=== PATIENT | female | born 1975 | race Caucasian/White ===

== ENCOUNTER 2017-07-29 15:46 | Observation (INO) ==
--- NOTE | 2017-07-29 16:52 | Emergency Department Report ---
Epistaxis HPI - General Chief complaint: Medical Emergency Stated complaint: nose bleed Time Seen by Provider: 07/29/17 16:40 Source: patient Mode of arrival: ambulatory Limitations: no limitations - History of Present Illness HPI Narrative: Pt presents with epistaxis that started about 1445. Pt used Afrin and has held pressure at home. She called her oncologist who instructed pt to come in to the ER. Pt platelets yesterday were [id number]. She does wear home O2 and states she has been using a humidifier. Nasal clamped was placed on arrival which she has removed herself. Bleeding currently controlled. Pt reports last nose bleed about 3 weeks ago. She had one in December where she came to ER and had to be transferred to [facility] complaint: epistaxis Location: bilateral nostril Onset (ago): hour(s) Duration: constant Context: history of previous Treatment prior to arrival: nose pinching, stuffed nose with tissue, other ( Afrin) - Related Data Home Medications Medication Instructions Recorded Confirmed IMMUNE GLOBULIN (IVIG) Low IGA 1 vial IV Q2WKS #0 06/10/15 07/29/17 [GAMMAGARD Low IGA] Omeprazole 40 mg PO DAILY #0 06/10/15 07/29/17 Ruxolitinib Phosphate [Jakafi] 5 mg PO BID 06/30/17 07/29/17 Acetaminophen [Acetaminophen Extra 1,000 mg PO Q6H PRN 07/29/17 07/29/17 Strength] Albuterol Sulfate [Proair Hfa] 2 puff INH Q4H PRN 07/29/17 07/29/17 Ergocalciferol (Vitamin D2) 50,000 unit PO 2XW 07/29/17 07/29/17 [Vitamin D2] Insulin Degludec *U100* [Tresiba 20 unit SQ HS 07/29/17 07/29/17 Flextouch U-100 Pen] Levothyroxine Sodium 75 mcg PO ACB 07/29/17 07/29/17 [Levothyroxine Sodium] Levothyroxine Sodium 300 mcg PO ACB 07/29/17 07/29/17 [Levothyroxine Sodium] Methylprednisolone Sod Succ/Pf 1,000 mg IV Q2WKS 07/29/17 07/29/17 [Solu-Medrol 1,000 mg Vial] diphenhydrAMINE HCl [Benadryl] 25 mg PO Q2WKS 07/29/17 07/29/17 Allergies Allergy/AdvReac Type Severity Reaction Status Date / Time amoxicillin Allergy Intermediate HIVES Verified 07/29/17 16:55 erythromycin base Allergy Intermediate HIVES Verified 07/29/17 16:55 ondansetron Allergy Intermediate HIVES Verified 07/29/17 16:55 Penicillins Allergy Intermediate HIVES Verified 07/29/17 16:55 Sulfa (Sulfonamide Allergy Intermediate HIVES Verified 07/29/17 16:55 Antibiotics) NSAIDS (Non-Steroidal Allergy Unknown DO NOT Verified 07/29/17 16:55 Anti-Inflamma GIVE D/T KIDNEY FUNCTION cephalexin [From Keflex] Allergy Hives Verified 07/29/17 16:55 ketorolac AdvReac Unknown Verified 07/29/17 16:56 Review of Systems All systems: reviewed and negative except as stated Constitutional: Reports: as per HPI ENT: Reports: as per HPI Hematological/Lymphatic: Reports: as per HPI Allergic/Immunologic: Reports: as per HPI PFS Patient Stated Medical History Cerebrovascular Accident No Migraine Yes Seizures No Syncope No Transient Ischemic Attacks ( No TIA) Cataracts No Dental Problems No Glaucoma No Hearing Loss No Macular Degeneration No Other HEENT Yes: sinus problems Cardiac Arrhythmia No Congestive Heart Failure No Heart Murmur Yes Myocardial Infarction No Bronchitis Yes Pneumonia Yes Sleep Apnea No Other Respiratory Yes: interstitial lung disease-pneumocytosis Diabetes Mellitus Type 2 Yes Gastroesophageal Reflux Yes Disease Hiatal Hernia No Ulcer No Hx Renal Disease Yes: renal deficiency Hx Urinary Tract Infection No Anemia Yes Blood Disorders Yes: low platelet count Clotting Problems No Osteoarthritis No Cellulitis Yes: leg MRSA Yes: hand Sepsis No Vancomycin-Resistant No Enterococci Anesthesia Reactions No Blood Transfusions No Fibroids No Ovarian Cysts Yes Post Menopausal Yes Clinic Medical History (Last Reviewed 07/03/17 @ 11:47 by Oswaldo Smith MD) Diabetes mellitus type 2, controlled (Chronic Medical ~2004) Worse control. Vitamin D deficiency (Chronic Medical) Still very deficient. Hypothyroidism (Chronic Medical ~1982) Clinically euthyroid. Obesity (BMI 30-39.9) (Chronic Medical) Surgical History: Hysterectomy, gallbladder, port placement. bone marrow biopsy x3. colonoscopy Family History: Family History (Last Reviewed 07/03/17 @ 11:47 by Oswaldo Smith MD) Maternal Grandmother Diabetes Mother Diabetes Thyroid disease Paternal Grandmother Diabetes Cancer of pancreas Colon cancer Maternal Grandfather Thyroid disease Paternal Grandfather Thyroid disease - Social History Smoking status: Former smoker Physical Exam - Limitations Limitations: no limitations - General General appearance: alert, in no apparent distress - Normal Exams: Head:: Normocephalic without trauma Eyes:: Pupils are PERRLA w/ EOMI Neck:: Full range of motion, without adenopathy Chest/Respirations:: Clear all joyner, with good airflow, and symmetry bilaterally Cardiovascular:: Regular rate and rhythm, without murmur or gallop Abdomen:: Bowel sounds positive, soft, non-tender Musculoskeletal:: No tenderness, or deformity noted, good range of motion, all extremities Integumentary:: No rashes Neurological:: Patient is alert, and oriented, cranial nerves, motor/sensory/ cerebellar, exams w/o gross deficits, to observation Psychiatric:: Patient exhibits, appropriate attention, emotion and affect - Expanded ENT Exam Nose exam: Absent: sinus tenderness, nasal deviation, laceration, abrasion Nasal speculum exam: Bilateral: epistaxis (currently controlled) Course Vital Signs Temperature 97.4 F 07/29/17 15:51 Pulse Rate 85 07/29/17 15:51 Respiratory Rate 20 07/29/17 15:51 Blood Pressure 111/64 07/29/17 15:51 Pulse Oximetry 93 07/29/17 15:51 Temperature 97.4 F 07/29/17 15:51 Pulse Rate 84 07/29/17 18:05 Respiratory Rate 20 07/29/17 18:05 Blood Pressure 108/61 07/29/17 18:05 Pulse Oximetry 98 07/29/17 18:05 Epistaxis - [facility] Narrative Medical decision making narrative: Epistaxis has remained controlled since the removal of the nasal clamp. Dr Plaza notified of pt current platelet level which is now 3 down from [address] Plaza would like pt to be admitted 24 obs to the hospitalist for platelet transfusion. Findings and plan discussed with pt who is in agreement with care. - Differential Diagnosis Likely: nasal bone fracture, anterior epistaxis, posterior epistaxis - Lab Data Attestation: I reviewed the patient's lab results. Result diagrams: 07/29/17 17:03 Lab Results 07/29/17 Range/Units 17:03 WBC 3.3 L (4.5-11.0) T/MM3 RBC 4.02 (4.00-5.20) M/MM3 Hgb 11.3 L (12-16) GM/DL Hct 37.9 (36-46) % MCV 94.3 (80-100) UM3 MCH 28.1 (26-34) UUG MCHC 29.8 L (31-37) GM/DL RDW Std Deviation 60.0 H (36.9-50.2) FL Plt Count 3 L* D (130-400) T/MM3 MPV Not performed Immature Gran % (Auto) Not performed Neut % (Auto) Not performed Lymph % (Auto) Not performed [place] % (Auto) Not performed Eos % (Auto) Not performed Baso % (Auto) Not performed Neut # (Auto) Not performed Lymph # (Auto) Not performed [place] # (Auto) Not performed Eos # (Auto) Not performed Baso # (Auto) Not performed Abs Immat Gran (auto) Not performed Neutrophils % (Manual) 79.0 H (33-66) % Band Neutrophils % 4.0 (0-6) % Lymphocytes % (Manual) 14.0 L (23-45) % Monocytes % (Manual) 3.0 (0-9.0) % Neutrophils # (Manual) 2.6 (1.8-7.7) T/MM3 Band Neutrophils # 0.1 T/MM3 Lymphocytes # (Manual) 0.5 L (1-4.8) T/MM3 Monocytes # (Manual) 0.1 (0-0.8) T/MM3 Poikilocytosis 1+ Anisocytosis 1+ Tear Drop Cells 1+ RBC Morph Comment Abnormal Disposition Clinical Impression: Thrombocytopenia Disposition: 02 [place] [facility] [place] Condition: Improved Prescriptions: No Action Ruxolitinib Phosphate [Jakafi] 5 mg PO BID Levothyroxine Sodium [Levothyroxine Sodium] 75 mcg PO ACB Ergocalciferol (Vitamin D2) [Vitamin D2] 50,000 unit PO 2XW Albuterol Sulfate [Proair Hfa] 2 puff INH Q4H PRN PRN Reason: Prn Orders Methylprednisolone Sod Succ/Pf [Solu-Medrol 1,000 mg Vial] 1,000 mg IV Q2WKS diphenhydrAMINE HCl [Benadryl] 25 mg PO Q2WKS Acetaminophen [Acetaminophen Extra Strength] 1,000 mg PO Q6H PRN PRN Reason: Pain IMMUNE GLOBULIN (IVIG) Low IGA [GAMMAGARD Low IGA] 1 vial IV Q2WKS #0 Omeprazole 40 mg PO DAILY #0 Levothyroxine Sodium [Levothyroxine Sodium] 300 mcg PO ACB Insulin Degludec *U100* [Tresiba Flextouch U-100 Pen] 20 unit SQ HS Referrals: Kenny Baker DO [Family Provider] - Time of Disposition: 18:30 - Seen By: jean claude
[2017-07-29] MEDS ORDERED: SALINE FLUSH 10ml SYRINGE IVF PRN (18:26)
--- NOTE | 2017-07-29 18:36 | History & Physical Report ---
History of Present Illness Date: 07/29/17 Chief complaint: epistaxis, low platelets HPI: Patient presents to the emergency room with epistaxis. Bleeding controlled following clamping of the nose. Her platelet count was 12,000 yesterday. Today in the ER was found to be 3000. Patient has myelofibrosis and follows with Dr. Del Toro. She sees Dr. Emily Cabello for IVIG. She states she had this infusion yesterday. She has had platelet transfusions in the past. Last transfusion was in May. Other than her bloody nose, she has no other symptoms. She does wear 3 liters oxygen 24 -7 due to her interstitial lung disease. Review of Systems All systems PM: 10-point ROS was reviewed, no additional remarkable complaints except (epistaxis) Past Medical History Medical History Myelofibrosis Migraine headaches Interstitial lung disease GERD Thrombocytopenia History of MRSA Diabetes mellitus type 2, controlled Vitamin D deficiency Hypothyroidism Clinically euthyroid. Obesity (BMI 30-39.9) Surgical History: Hysterectomy, gallbladder, port placement. bone marrow biopsy x3. colonoscopy Family History: Family History Maternal Grandmother Diabetes Mother Diabetes Thyroid disease Paternal Grandmother Diabetes Cancer of pancreas Colon cancer Maternal Grandfather Thyroid disease Paternal Grandfather Thyroid disease Family History Updates: Updated - Social History Smoking status: Former smoker (quit 13 years ago) Substance use type: does not use Alcohol intake frequency: holidays/special occasions only (2 times a year) Current occupational status: unemployed Social history: PCP-Dr. Baker Oncologist-Dr. Del Toro Mixing Machine Tender-Dr. Smith Yard Assistant-Dr. Cabello Performance Reporter-Dr. Messer Infectious disease-Dr. Emily Cabello Medications Home Medications Medication Instructions Recorded Confirmed Type IMMUNE GLOBULIN (IVIG) Low IGA 1 vial IV Q2WKS #0 06/10/15 07/29/17 History [GAMMAGARD Low IGA] Omeprazole 40 mg PO DAILY #0 06/10/15 07/29/17 History Ruxolitinib Phosphate [Jakafi] 5 mg PO BID 06/30/17 07/29/17 History Acetaminophen [Acetaminophen Extra 1,000 mg PO Q6H PRN 07/29/17 07/29/17 History Strength] Albuterol Sulfate [Proair Hfa] 2 puff INH Q4H PRN 07/29/17 07/29/17 History Ergocalciferol (Vitamin D2) 50,000 unit PO 2XW 07/29/17 07/29/17 History [Vitamin D2] Insulin Degludec *U100* [Tresiba 20 unit SQ HS 07/29/17 07/29/17 History Flextouch U-100 Pen] Levothyroxine Sodium 75 mcg PO ACB 07/29/17 07/29/17 History [Levothyroxine Sodium] Levothyroxine Sodium 300 mcg PO ACB 07/29/17 07/29/17 History [Levothyroxine Sodium] Methylprednisolone Sod Succ/Pf 1,000 mg IV Q2WKS 07/29/17 07/29/17 History [Solu-Medrol 1,000 mg Vial] diphenhydrAMINE HCl [Benadryl] 25 mg PO Q2WKS 07/29/17 07/29/17 History Allergies Allergy/AdvReac Type Severity Reaction Status Date / Time amoxicillin Allergy Intermediate HIVES Verified 07/29/17 16:55 erythromycin base Allergy Intermediate HIVES Verified 07/29/17 16:55 ondansetron Allergy Intermediate HIVES Verified 07/29/17 16:55 Penicillins Allergy Intermediate HIVES Verified 07/29/17 16:55 Sulfa (Sulfonamide Allergy Intermediate HIVES Verified 07/29/17 16:55 Antibiotics) NSAIDS (Non-Steroidal Allergy Unknown DO NOT Verified 07/29/17 16:55 Anti-Inflamma GIVE D/T KIDNEY FUNCTION cephalexin [From Keflex] Allergy Hives Verified 07/29/17 16:55 ketorolac AdvReac Unknown Verified 07/29/17 16:56 Exam Vital Signs: Temperature 97.4 F 07/29/17 15:51 Pulse Rate 84 07/29/17 18:05 Respiratory Rate 20 07/29/17 18:05 Blood Pressure 108/61 07/29/17 18:05 Pulse Oximetry 98 07/29/17 18:05 Height/Weight/BMI: Height 1.55 m Weight 90.9 kg - Constitutional Present: no acute distress, well nourished, well developed - Routine HEENT Exam Head: Present: normocephalic, atraumatic Eye: Present: EOMI, PERRL ENT: Present: mucous membranes moist, oropharynx clear - Routine Neck Exam Present: supple. Absent: lymphadenopathy, thyromegaly - Routine Respiratory Exam Present: CTA bilaterally. Absent: wheezes - Routine Cardiovascular Exam Present: RRR, no murmur - Routine Abdominal Exam Present: soft, normoactive bowel sounds. Absent: tenderness, distended Comments: No organomegaly noted on exam. Patient is obese, so this does limit exam. - Routine Extremities Exam Present: no edema, normal capillary refill - Routine Skin Exam Present: dry, warm - Routine Neurological Exam Present: alert, oriented X3, CN II-XII intact - Routine Psychiatric Exam Present: normal affect, cooperative Results - Labs CBC & Chem 7: 07/29/17 17:03 07/29/17 18:25 Labs: Laboratory Tests 07/29/17 18:25 INR 1.00 APTT 33.9 Laboratory Tests 07/29/17 18:25 AST 89 H ALT 172 H Alkaline Phosphatase 303 H Assessment and Plan (1) Thrombocytopenia Current visit: Yes Status: Acute (2) Diabetes mellitus type 2, controlled Current visit: No Status: Chronic Assessment and Plan: Assessment Epistaxis-controlled Thrombocytopenia (3000)-POA Hypernatremia (145)-POA Myelofibrosis Migraine headaches Interstitial lung disease Renal insufficiency GERD History of MRSA Diabetes mellitus type 2, controlled Vitamin D deficiency Hypothyroidism Clinically euthyroid. Obesity (BMI 30-39.9) Plan Admit, observation to the hospitalist service, Dr. Ferraro attending, for platelet transfusion. Transfuse 1 unit of platelets. Premedicate with Tylenol and Benadryl. Repeat labs in a.m. to follow platelets and hypernatremia. Accuchecks to monitor BS's. Continue home insulin dosing. Hold ruxolitinib due to platelet count of 3000. SCDs for DVT prophylaxis. Patient wishes to be a full code. Care to return to Dr. Baker upon dismissal. Case discussed with Dr. Ferraro. Outside records reviewed. 07/29/2017-8:45 PM-Dr. Ferraro-I reviewed this chart, the patient history, and the LAUNDR[employer] DRY CLEANERS COUNTER CLERK's/PA's documented findings as above. We discussed and formulated the assessment and plan as above with the additions below. The patient is a very pleasant 41-year-old female with history of myelofibrosis and thrombocytopenia. She has required platelet transfusions a couple of times in the past, the last time in May. She developed epistaxis and presented to the emergency room and was given Afrin nasal spray and her nose was clamped and epistaxis resolved. Platelets were found to be 3000. Dr. Mcdonald, her concrete placement equipment operator oncologist was called and he recommended admission and transfusion of irradiated platelets. The patient denies any other bleeding problems. She has not noticed any black tarry stools. She has been eating and drinking well. She is chronically on 3 L of oxygen and denies dyspnea or chest pain. She receives IVIG injections for history of frequent infections. She has not had any recent infections. She denies any recent fevers, chills or sweats. She has some chronic hip pain but denies pain elsewhere. On exam she is alert and oriented and in no acute distress. Chest is clear to auscultation. Cardiovascular reveals a regular rate and rhythm. Abdomen is soft and nontender. Extremities are free of edema. Impression Epistaxis-resolved Thrombocytopenia-requiring platelet transfusion Mild anemia Myelofibrosis Interstitial lung disease on 3 L of oxygen chronically Diabetes mellitus History of migraine headaches for which she takes Maxalt Plan Platelet transfusion today. Repeat CBC tomorrow. We'll discuss tomorrow with Dr. Del Toro. DVT Prophylaxis: SCD's Resuscitation Status: Full Code - Physician Narrative Narrative: Date: 07/29/17 Time: 1833 Hospital Course Summary Disclaimer: The visit summary below is not to be considered part of the above Progress Note. Hospital Course: 07/29/17-hospital admission for observation Admit, observation to the hospitalist service, Dr. Ferraro attending, for platelet transfusion. Transfuse 1 unit of platelets. Premedicate with Tylenol and Benadryl. Repeat labs in a.m. to follow platelets and hypernatremia. Accuchecks to monitor BS's. Continue home insulin dosing. Hold ruxolitinib due to platelet count of 3000. SCDs for DVT prophylaxis. Patient wishes to be a full code. Care to return to Dr. Baker upon dismissal. Case discussed with Dr. Ferraro. Outside records reviewed.
[2017-07-29 18:52] VITALS: BMI 38.8
[2017-07-29] MEDS ORDERED: DiphenhydrAMINE 25 MG CAPSULE PO ONE (18:59)
[2017-07-29] MEDS ORDERED: ACETAMINOPHEN 325 MG TABLET PO ONE (19:02)
[2017-07-29] MEDS: ACETAMINOPHEN 325 MG TABLET PO PRN (20:20)
[2017-07-29] MEDS ORDERED: TRESIBA PO SCH (21:00)
[2017-07-30] MEDS: ACETAMINOPHEN 325 MG TABLET PO PRN ×3 (01:08→13:59)
[2017-07-30] MEDS ORDERED: LEVOTHYROXINE SODIUM 300 MCG PO SCH (06:30)
[2017-07-30] MEDS ORDERED: LEVOTHYROXINE 75 MCG TABLET PO SCH (06:30)
[2017-07-30] MEDS ORDERED: OMEPRAZOLE 20 MG CAPSULE PO SCH (07:45)
[2017-07-30] MEDS ORDERED: NS FLUSH BAG 500ml IV PRN (07:59)
[2017-07-30] MEDS ORDERED: DiphenhydrAMINE 25 MG CAPSULE PO ONE ×2 (08:00→15:45)
[2017-07-30] MEDS ORDERED: NON-FORMULARY MEDICATION 1 EACH EACH (Omeprazole [Omeprazole] 40 MG) PO SCH (09:00)
[2017-07-30] MEDS ORDERED: --POM--LEVOTHYROXINE 75 MCG TABLET PO SCH (13:30)
[2017-07-30] MEDS ORDERED: LEVOTHYROXINE 300 MCG PO SCH (13:30)
[2017-07-30] MEDS ORDERED: ALBUTEROL 2.5mg/3ml (0.083%) NEB AEROSOL PRN (16:19)
[2017-07-30] MEDS ORDERED: DEXAMETHASONE 20 MG/5 ML INJECTION IVP ONE (18:43)
--- NOTE | 2017-07-30 19:00 | Discharge Summary ---
Discharge Information Date of admission: 07/29/17 18:17 Anticipated date of discharge: 07/30/17 Attending Physician: Moraima Ferraro MD Primary care physician: Kenny Baker, DO - Discharge Diagnosis (1) Thrombocytopenia Status: Acute (2) Diabetes mellitus type 2, controlled Status: Chronic Epistaxis-resolved Thrombocytopenia myelofibrosis - Laboratory Labs: 07/30/17 17:44 07/30/17 04:11 Laboratory Tests 07/29/17 07/29/17 07/30/17 17:03 18:25 04:11 WBC 3.3 L 2.8 L Hgb 11.3 L 9.7 L D Plt Count 3 L* D 6 L* D Neutrophils % (Manual) 77.0 H Band Neutrophils % 3.0 Lymphocytes % (Manual) 13.0 L Monocytes % (Manual) 4.0 Eosinophils % (Manual) 3.0 Neutrophils # (Manual) 2.2 Band Neutrophils # 0.1 Lymphocytes # (Manual) 0.4 L Monocytes # (Manual) 0.1 Eosinophils # (Manual) 0.1 INR 1.00 APTT 33.9 Calculated Osmolality Calcium Total Bilirubin Icterus Index AST ALT Alkaline Phosphatase Total Protein Albumin Globulin Albumin/Globulin Ratio 07/30/17 07/30/17 04:11 17:44 WBC Hgb Plt Count 6 L* Neutrophils % (Manual) Band Neutrophils % Lymphocytes % (Manual) Monocytes % (Manual) Eosinophils % (Manual) Neutrophils # (Manual) Band Neutrophils # Lymphocytes # (Manual) Monocytes # (Manual) Eosinophils # (Manual) INR APTT Calculated Osmolality 285 H Calcium 9.4 Total Bilirubin 0.40 Icterus Index < 2 AST 63 H ALT 126 H Alkaline Phosphatase 240 H Total Protein 7.0 Albumin 3.7 Globulin 3.3 Albumin/Globulin Ratio 1.1 History of Present Illness HPI: Patient presents to the emergency room with epistaxis. Bleeding controlled following clamping of the nose. Her platelet count was 12,000 yesterday. Today in the ER was found to be 3000. Patient has myelofibrosis and follows with Dr. Del Toro. She sees Dr. Emily Cabello for IVIG. She states she had this infusion yesterday. She has had platelet transfusions in the past. Last transfusion was in May. Other than her bloody nose, she has no other symptoms. She does wear 3 liters oxygen 24 -7 due to her interstitial lung disease. Objective Vital signs: Temperature 97.4 F 07/30/17 15:47 Pulse Rate 88 07/30/17 15:47 Respiratory Rate 24 07/30/17 15:47 Blood Pressure 125/71 07/30/17 15:47 Pulse Oximetry 98 07/30/17 15:47 Height/Weight/BMI: Height 1.55 m Weight 93.9 kg Body Mass Index 38.8 Hospital Course This is a general summary of the patient's hospital course. For more details refer to the complete medical record. Hospital course: 07/29/2017 The patient is a very pleasant 41-year-old female with history of myelofibrosis and thrombocytopenia. She has required platelet transfusions a couple of times in the past, the last time in May. She developed epistaxis and presented to the emergency room and was given Afrin nasal spray and her nose was clamped and epistaxis resolved. Platelets were found to be 3000. Dr. Mcdonald, her employment programs analyst oncologist was called and he recommended admission and transfusion of irradiated platelets. The patient denies any other bleeding problems. She has not noticed any black tarry stools. She has been eating and drinking well. She is chronically on 3 L of oxygen and denies dyspnea or chest pain. She receives IVIG injections for history of frequent infections. She has not had any recent infections. She denies any recent fevers, chills or sweats. She has some chronic hip pain but denies pain elsewhere. On exam she is alert and oriented and in no acute distress. Chest is clear to auscultation. Cardiovascular reveals a regular rate and rhythm. Abdomen is soft and nontender. Extremities are free of edema. Impression Epistaxis-resolved Thrombocytopenia-requiring platelet transfusion Mild anemia Myelofibrosis Interstitial lung disease on 3 L of oxygen chronically Diabetes mellitus History of migraine headaches for which she takes Maxalt Plan Platelet transfusion today. Repeat CBC tomorrow. We'll discuss tomorrow with Dr. Del Toro. 07/30/2017 The patient states she has had no further epistaxis. She has had no bleeding. She denies shortness of breath. She is on her chronic 3 L of oxygen. She is not lightheaded when she is up walking. On exam today the patient is alert and oriented 3 and in no acute distress. Chest is clear to auscultation. Cardiovascular reveals a regular rate and rhythm. Abdomen is soft and nontender. Skin is warm and dry and without rashes. CBC this morning revealed a white count of 2.8, hemoglobin 9.7, platelet count of 6. I did call and talk with Dr. Del Toro and notified him of lab work today. He recommended giving another unit of platelets today. The patient did receive another unit of platelets and on recheck platelet count was 6 again. He did then recommend Decadron 10 mg IV and dismissal to home tonight. He will follow- up with her in the clinic tomorrow morning with lab work prior. She is to remain off of Jakafi for now. The patient is in agreement with this plan. I have urged her to return to the emergency room if she has recurrence of nosebleed or any other bleeding issues. She does state understanding. She did ask whether or not she should go on her cruise scheduled for this Friday. I did recommend that she discuss this with Dr. Del Toro tomorrow morning. Resuscitation Status: Full Code Discharge Plan - Discharge Disposition Discharge Date: 07/30/17 Disposition: Discharged Home, Self-Care *Condition: Improved Reason For Visit (Visit label in EMR): Thombocytopenia, epistaxis - Discharge Medications *Discharge Medications: Continue Levothyroxine Sodium 75 mcg PO ACB Ergocalciferol (Vitamin D2) [Vitamin D2] 50,000 unit PO 2XW Albuterol Sulfate [Proair Hfa] 2 puff INH Q4H PRN PRN Reason: Prn Orders Methylprednisolone Sod Succ/Pf [Solu-Medrol 1,000 mg Vial] 1,000 mg IV Q2WKS diphenhydrAMINE HCl [Benadryl] 25 mg PO Q2WKS Acetaminophen [Acetaminophen Extra Strength] 1,000 mg PO Q6H PRN PRN Reason: Pain IMMUNE GLOBULIN (IVIG) Low IGA [GAMMAGARD Low IGA] 1 vial IV Q2WKS #0 Omeprazole 40 mg PO DAILY #0 Levothyroxine Sodium 300 mcg PO ACB Insulin Degludec *U100* [Tresiba Flextouch U-100 Pen] 20 unit SQ HS Discontinued Ruxolitinib Phosphate [Jakafi] 5 mg PO BID - Discharge Packet/Instructions *Diet: Diabetic Diet *Activity: No strenuous activity *Pain Management/Treatment: Tylenol as needed *Wound Care: Not applicable *Expected Signs/Symptoms: Mild fatigue *Notify Physician if: Go to the ER if you have recurrence of nosebleed or any other bleeding issues. If you have Chest pain, shortness of breath, or lightheadedness or significant bleeding, Call 911 *During Business Hours Contact: Call Dr. Del Toro's office *After Business Hours Contact: Call [phone] have your doctor paged *Pending Lab/Results: No Pending Lab - Referrals/Follow Up *Referrals/Follow Up: Mauro Del Toro MD [Physician] - 1 Day - Patient Handouts - Dismissal Complete Discharge Instructions are:: Complete (discharge after receiving IV Decadron) Physician Narrative - Narrative Attestation Narrative: Date: 07/30/17 Time: 1851
[2017-07-30 20:36] VITALS: BP 96/61; PULSE 90; RESP 16; TEMP 98.2; O2SAT 100
[2017-07-30] MEDS ORDERED: [UNRECOGNIZED DRUG - CODE] SQ SCH (21:00)
[2017-07-31] MEDS ORDERED: --POM--LEVOTHYROXINE 75 MCG TABLET PO SCH (06:30)
== END 2017-07-30 21:10 | disposition home or self-care (01) ==
LOC: MED 15:46 → ED 15:46 → MED 18:38
PROVIDERS: ADMIT Internal Medicine; ATTEND Internal Medicine

== ENCOUNTER 2017-09-04 11:49 | Inpatient (IN) ==
--- NOTE | 2017-09-04 12:39 | Emergency Department Report ---
Epistaxis HPI - General Chief complaint: Epistaxis Stated complaint: bloody nose,low plateletes Time Seen by Provider: 09/04/17 12:30 Source: patient Mode of arrival: ambulatory Limitations: no limitations - History of Present Illness HPI Narrative: Rica is a 42 year old female who comes to the ER with cc: right nare nosebleed starting today while getting labwork drawn for f/u thrombocytopenia secondary to myelofibrosis. Hx epistaxis to left nare several times, last episode stopped in ER with QuickClot powder. Platelets 7K today, they were 2K on Friday and she has received two platelet packs this week. She was diagnosed with Influenza A on Friday and started on [place], finishes course tomorrow evening. Chronically on o2, uses bubbler at home. Appt with [facility] set up for September 25. complaint: epistaxis Location: right nostril Onset (ago): hour(s) (1) Duration: constant Context: history of previous, recent URI, other (thrombocytopenia) Treatment prior to arrival: nasal clamp - Related Data Home Medications Medication Instructions Recorded Confirmed IMMUNE GLOBULIN (IVIG) Low IGA 1 vial IV Q2WKS #0 06/10/15 09/04/17 [GAMMAGARD Low IGA] Omeprazole 40 mg PO HS #0 06/10/15 09/04/17 Acetaminophen [Acetaminophen Extra 1,000 mg PO Q6H PRN 07/29/17 09/04/17 Strength] Albuterol Sulfate [Proair Hfa] 2 puff INH Q4H PRN 07/29/17 09/04/17 Ergocalciferol (Vitamin D2) 50,000 unit PO TUSA@1500 07/29/17 09/04/17 [Vitamin D2] Insulin Degludec *U100* [Tresiba 20 unit SQ HS 07/29/17 09/04/17 Flextouch U-100 Pen] Levothyroxine Sodium 75 mcg PO HS 07/29/17 09/04/17 Levothyroxine Sodium 300 mcg PO HS 07/29/17 09/04/17 Methylprednisolone Sod Succ/Pf 1,000 mg IV Q2WKS 07/29/17 09/04/17 [Solu-Medrol 1,000 mg Vial] diphenhydrAMINE HCl [Benadryl] 25 mg PO Q2WKS 07/29/17 09/04/17 Ruxolitinib Phosphate [Jakafi] 5 mg PO BID 08/25/17 09/04/17 Oseltamivir Phosphate 75 mg PO BID 09/04/17 09/04/17 Previous Rx's Medication Instructions Recorded Insulin Aspart [NovoLOG] 8 unit SQ WM #1 vial 09/06/17 Oxycodone/Apap 7.5/325 [Percocet 1 tab PO Q6H PRN #30 tab 09/06/17 7.5/325] PredniSONE [Deltasone 10 mg] 30 mg PO WS tab 09/06/17 PredniSONE [Deltasone 20 mg] 60 mg PO WB #60 tab 09/06/17 Sodium Chloride Nasal Gel [[employer] applicatio TOP QID PRN tube 09/06/17 Nasal Gel] Allergies Allergy/AdvReac Type Severity Reaction Status Date / Time amoxicillin Allergy Intermediate HIVES Verified 09/04/17 11:59 erythromycin base Allergy Intermediate HIVES Verified 09/04/17 11:59 ondansetron Allergy Intermediate HIVES Verified 09/04/17 11:59 Penicillins Allergy Intermediate HIVES Verified 09/04/17 11:59 Sulfa (Sulfonamide Allergy Intermediate HIVES Verified 09/04/17 11:59 Antibiotics) NSAIDS (Non-Steroidal Allergy Unknown DO NOT Verified 09/04/17 11:59 Anti-Inflamma GIVE D/T KIDNEY FUNCTION cephalexin [From Keflex] Allergy Hives Verified 09/04/17 11:59 ketorolac AdvReac Unknown Verified 09/04/17 11:59 Review of Systems All systems: reviewed and negative except as stated Constitutional: Reports: fever (none today) ENT: Reports: congestion Cardiovascular: Denies: chest pain Respiratory: Reports: cough Gastrointestinal: Reports: nausea. Denies: vomiting Neurological: Reports: headache Hematological/Lymphatic: Reports: easy bleeding, easy bruising, other (denies blood in stool) Allergic/Immunologic: Denies: facial swelling PFSH Patient Stated Medical History Cerebrovascular Accident No Migraine Yes Peripheral Neuropathy Yes Seizures No Syncope No Transient Ischemic Attacks ( No TIA) Cataracts No Dental Problems No Glaucoma No Hearing Loss No Macular Degeneration No Other HEENT Yes: sinus problems, epistaxis. Cardiac Arrhythmia No Congestive Heart Failure No Heart Murmur Yes Myocardial Infarction No Asthma Yes Bronchitis Yes Pneumonia Yes Sleep Apnea No Other Respiratory Yes: interstitial lung disease-pneumocytosis Diabetes Mellitus Type 2 Yes Gastroesophageal Reflux Yes Disease Hiatal Hernia No Ulcer No Hx Renal Disease Yes: renal deficiency Hx Urinary Tract Infection Yes Anemia Yes Blood Disorders Yes: low platelet count, myelofibrosis Clotting Problems Yes Osteoarthritis No Cellulitis Yes: leg Herpes Yes MRSA Yes: hand Sepsis No Vancomycin-Resistant No Enterococci Anesthesia Reactions No Blood Transfusions Yes: Last Blood in October of 2015. Platelets in May of 2016. Other Yes: Immunoglobulin deficiency Fibroids No Ovarian Cysts Yes Post Menopausal Yes Clinic Medical History (Last Reviewed 07/03/17 @ 11:47 by Oswaldo Smith MD) Diabetes mellitus type 2, controlled (Chronic Medical ~2004) Vitamin D deficiency (Chronic Medical) Still very deficient. Hypothyroidism (Chronic Medical ~1982) Clinically euthyroid. Obesity (BMI 30-39.9) (Chronic Medical) Surgical History: Hysterectomy, gallbladder, port placement. bone marrow biopsy x3. colonoscopy Family History: Family History (Last Reviewed 07/03/17 @ 11:47 by Oswaldo Smith MD) Maternal Grandmother Diabetes Mother Diabetes Thyroid disease Paternal Grandmother Diabetes Cancer of pancreas Cancer of colon Maternal Grandfather Thyroid disease Paternal Grandfather Thyroid disease Family History Updates: Updated - Social History Smoking status: Former smoker Substance use type: does not use Alcohol intake frequency: holidays/special occasions only Current occupational status: unemployed Physical Exam - General General appearance: alert, in no apparent distress - Head Head exam: atraumatic, normocephalic - Eye Eye exam: Present: normal appearance, PERRL. Absent: scleral icterus, conjunctival injection - ENT ENT exam: Present: other (blood trickling down pharynx, gentle ooze right nare) - Expanded ENT Exam Nose exam: Absent: sinus tenderness, nasal deviation, septal hematoma Nasal speculum exam: Right: epistaxis Mouth exam: Present: normal external inspection, tongue normal. Absent: drooling, trismus, lip swelling - Neck Neck exam: Present: normal inspection, full ROM - Chest Chest inspection: Present: normal inspection, symmetric chest wall rise - Respiratory Respiratory exam: Present: respiratory distress (mild distress-uses o2 to mouth) , crackles - Cardiovascular Cardiovascular exam: Present: normal rhythm, tachycardia. Absent: systolic murmur - Abdominal Exam Abdominal exam: Present: soft. Absent: distention, tenderness - Skin Skin exam: Present: warm, dry, intact, rash (petechiae lower extremities) - Neurological Exam Neurological exam: Present: alert, oriented X3 - Psychiatric Psychiatric exam: Present: normal affect, normal mood Course - Consultations Consultation #1: Via [facility]- Dr Mckeon ENT injection specialist for [facility] Time: 13:40 (recommended no balloons in nose, could consider epistat catheter if available. otherwise, consider admitting for platelets, continue Afrin and montioring) Consultation #2: dennis Ruvalcabaist Time: 14:25 (can admit obs for platelets, bleeding gentle ooze at time of eval by hosp [employer]) Vital Signs Temperature 97.5 F 09/04/17 11:59 Pulse Rate 106 H 09/04/17 11:59 Respiratory Rate 19 09/04/17 11:59 Blood Pressure 120/84 09/04/17 11:59 Pulse Oximetry 88 L 09/04/17 11:59 Temperature 98.1 F 09/06/17 15:32 Pulse Rate 70 09/06/17 15:32 Respiratory Rate 20 09/06/17 15:32 Blood Pressure 120/77 09/06/17 15:32 Pulse Oximetry 97 09/06/17 15:32 Procedures - Epistaxis Control Nostril: right Nose Prepped With: lidocaine, phenylephrine Direct Inspection: unable to visualize, anterior source identified, posterior source indentified (appears to be slight ooze posteriorly) Clots Removed by: manually Cautery Used: silver nitrate Patient Tolerated Procedure: well Complications: continued epistaxis Epistaxis - Lab Data Attestation: I reviewed the patient's lab results. Result diagrams: 09/06/17 14:27 09/06/17 03:50 Lab Results 09/04/17 09/04/17 09/04/17 Range/Units 14:32 14:32 18:13 WBC 4.8 (4.5-11.0) T/MM3 RBC 3.67 L (4.00-5.20) M/MM3 Hgb 10.3 L (12-16) GM/DL Hct 32.7 L (36-46) % MCV 89.1 (80-100) UM3 MCH 28.1 (26-34) UUG MCHC 31.5 (31-37) GM/DL RDW Std Deviation 51.6 H (36.9-50.2) FL Plt Count 9 L* (130-400) T/MM3 MPV Not performed Immature Gran % (Auto) Neut % (Auto) Lymph % (Auto) Upson % (Auto) Eos % (Auto) Baso % (Auto) Neut # (Auto) Lymph # (Auto) Upson # (Auto) Eos # (Auto) Baso # (Auto) Abs Immat Gran (auto) Neutrophils % (Manual) (33-66) % Band Neutrophils % (0-6) % Lymphocytes % (Manual) (23-45) % Neutrophils # (Manual) (1.8-7.7) T/MM3 Band Neutrophils # T/MM3 Lymphocytes # (Manual) (1-4.8) T/MM3 Poikilocytosis Anisocytosis Tear Drop Cells RBC Morph Comment Turbidity < 20 (0-20) Sodium 144 (134-144) MEQ/L Potassium 4.7 (3.6-5) MEQ/L Chloride 110 H (98-107) MEQ/L Carbon Dioxide 21 L (22-30) MEQ/L Anion Gap 13 (5-15) MEQ/L BUN 14.0 (7-17) MG/DL Creatinine 0.8 (0.7-1.2) mg/dL GFR Calculation 79 BUN/Creatinine Ratio 18 (6-26) RATIO Glucose 159 H (65-110) MG/DL Glucometer 166 (65-110) mg/dL Calculated Osmolality 281 H (261-280) MOSM/KG Calcium 9.8 (8.4-10.2) MG/DL Icterus Index < 2 (0-7) Specimen Hemolysis 37 H (0-25) Blood Product Request 09/04/17 09/04/17 09/05/17 Range/Units 21:35 21:54 00:43 WBC (4.5-11.0) T/MM3 RBC (4.00-5.20) M/MM3 Hgb (12-16) GM/DL Hct (36-46) % MCV (80-100) UM3 MCH (26-34) UUG MCHC (31-37) GM/DL RDW Std Deviation (36.9-50.2) FL Plt Count 4 L* D (130-400) T/MM3 MPV Immature Gran % (Auto) Neut % (Auto) Lymph % (Auto) Upson % (Auto) Eos % (Auto) Baso % (Auto) Neut # (Auto) Lymph # (Auto) Upson # (Auto) Eos # (Auto) Baso # (Auto) Abs Immat Gran (auto) Neutrophils % (Manual) (33-66) % Band Neutrophils % (0-6) % Lymphocytes % (Manual) (23-45) % Neutrophils # (Manual) (1.8-7.7) T/MM3 Band Neutrophils # T/MM3 Lymphocytes # (Manual) (1-4.8) T/MM3 Poikilocytosis Anisocytosis Tear Drop Cells RBC Morph Comment Turbidity (0-20) Sodium (134-144) MEQ/L Potassium (3.6-5) MEQ/L Chloride (98-107) MEQ/L Carbon Dioxide (22-30) MEQ/L Anion Gap (5-15) MEQ/L BUN (7-17) MG/DL Creatinine (0.7-1.2) mg/dL GFR Calculation BUN/Creatinine Ratio (6-26) RATIO Glucose (65-110) MG/DL Glucometer 283 (65-110) mg/dL Calculated Osmolality (261-280) MOSM/KG Calcium (8.4-10.2) MG/DL Icterus Index (0-7) Specimen Hemolysis (0-25) Blood Product Request 1 unit ppp issued 09/05/17 09/05/17 09/05/17 Range/Units 05:17 05:17 05:48 WBC 3.9 L (4.5-11.0) T/MM3 RBC 3.30 L (4.00-5.20) M/MM3 Hgb 9.3 L (12-16) GM/DL Hct 29.8 L (36-46) % MCV 90.3 (80-100) UM3 MCH 28.2 (26-34) UUG MCHC 31.2 (31-37) GM/DL RDW Std Deviation 51.8 H (36.9-50.2) FL Plt Count 2 L* D (130-400) T/MM3 MPV TNP Immature Gran % (Auto) Not performed Neut % (Auto) Not performed Lymph % (Auto) Not performed Upson % (Auto) Not performed Eos % (Auto) Not performed Baso % (Auto) Not performed Neut # (Auto) Not performed Lymph # (Auto) Not performed Upson # (Auto) Not performed Eos # (Auto) Not performed Baso # (Auto) Not performed Abs Immat Gran (auto) Not performed Neutrophils % (Manual) 90.0 H (33-66) % Band Neutrophils % 4.0 (0-6) % Lymphocytes % (Manual) 6.0 L (23-45) % Neutrophils # (Manual) 3.5 (1.8-7.7) T/MM3 Band Neutrophils # 0.2 T/MM3 Lymphocytes # (Manual) 0.2 L (1-4.8) T/MM3 Poikilocytosis 1+ Anisocytosis 1+ Tear Drop Cells 1+ RBC Morph Comment Abnormal Turbidity < 20 (0-20) Sodium 141 (134-144) MEQ/L Potassium 4.9 (3.6-5) MEQ/L Chloride 108 H (98-107) MEQ/L Carbon Dioxide 21 L (22-30) MEQ/L Anion Gap 12 (5-15) MEQ/L BUN 17.0 (7-17) MG/DL Creatinine 0.9 (0.7-1.2) mg/dL GFR Calculation 69 BUN/Creatinine Ratio 19 (6-26) RATIO Glucose 254 H (65-110) MG/DL Glucometer 230 (65-110) mg/dL Calculated Osmolality 282 H (261-280) MOSM/KG Calcium 9.7 (8.4-10.2) MG/DL Icterus Index < 2 (0-7) Specimen Hemolysis < 15 (0-25) Blood Product Request 09/05/17 Range/Units 10:18 WBC (4.5-11.0) T/MM3 RBC (4.00-5.20) M/MM3 Hgb (12-16) GM/DL Hct (36-46) % MCV (80-100) UM3 MCH (26-34) UUG MCHC (31-37) GM/DL RDW Std Deviation (36.9-50.2) FL Plt Count (130-400) T/MM3 MPV Immature Gran % (Auto) Neut % (Auto) Lymph % (Auto) Upson % (Auto) Eos % (Auto) Baso % (Auto) Neut # (Auto) Lymph # (Auto) Upson # (Auto) Eos # (Auto) Baso # (Auto) Abs Immat Gran (auto) Neutrophils % (Manual) (33-66) % Band Neutrophils % (0-6) % Lymphocytes % (Manual) (23-45) % Neutrophils # (Manual) (1.8-7.7) T/MM3 Band Neutrophils # T/MM3 Lymphocytes # (Manual) (1-4.8) T/MM3 Poikilocytosis Anisocytosis Tear Drop Cells RBC Morph Comment Turbidity (0-20) Sodium (134-144) MEQ/L Potassium (3.6-5) MEQ/L Chloride (98-107) MEQ/L Carbon Dioxide (22-30) MEQ/L Anion Gap (5-15) MEQ/L BUN (7-17) MG/DL Creatinine (0.7-1.2) mg/dL GFR Calculation BUN/Creatinine Ratio (6-26) RATIO Glucose (65-110) MG/DL Glucometer (65-110) mg/dL Calculated Osmolality (261-280) MOSM/KG Calcium (8.4-10.2) MG/DL Icterus Index (0-7) Specimen Hemolysis (0-25) Blood Product Request 1 unit ppp issued Disposition Clinical Impression: Epistaxis [place] [facility] [place] - Seen By: midlevel
[2017-09-04] MEDS ORDERED: ACETAMINOPHEN 325 MG TABLET PO ONE (15:06)
--- NOTE | 2017-09-04 15:13 | History & Physical Report ---
History of Present Illness Date: 09/04/17 Chief complaint: nosebleed HPI: Rica Louie is a 42-year-old woman with a history of myelofibrosis. She has chronic thrombocytopenia and frequent epistaxis. In fact, she was admitted in July with the same problem. To complicate matters, she is on chronic oxygen secondary to interstitial lung disease, and was diagnosed with influenza A on September 01. She is on day 4 of 5 of Tamiflu, as well as levofloxacin which was started empirically at the same time. She began having right-sided epistaxis on 09/04/17, with blood dripping down the back of her throat. She complains of headache and neck pain. She has continued her typical oxygen flow rate. She has had URI symptoms and cough. She feels weak in general but denies dizziness or lightheadedness. She hasn't had much of an appetite, and thinks she is dehydrated because her skin is more dry than usual. She has not had any nausea or vomiting. She denies diarrhea, constipation. In addition to epistaxis, she states that she often has a little bit of bright red bleeding per rectum after she uses the bathroom. She tends to bruise easily. She presented to [facility] emergency department, where a nasal clamp was placed, and later phenylephrine and lidocaine-soaked gauze was inserted into her right nare. She continued to spit out bright red blood and small clots every few minutes, but she did not have any difficulty managing her airway or swallowing. An ENT specialist was consulted from the emergency department, who recommended clamping or use of an Epistat catheter, which is not available here. The ENT recommended discharge home with clamping, however, given her complications, the hospitalist service was consulted for admission to observation status. Platelet count at 1119 was 7000, and on repeat lab draw at 1432 had increased to 9000. Her hemoglobin during the same time was 11 and 10.3, respectively. Review of Systems All systems PM: 10-point ROS was reviewed, no additional remarkable complaints except - Constitutional Constitutional: Present: as per HPI - EENMT Nose: Present: as per HPI Mouth/Throat: Present: as per HPI - Cardiovascular Cardiovascular: Absent: chest pain Vascular: Absent: pedal edema - Respiratory Respiratory: Present: as per HPI - Gastrointestinal Gastrointestinal: Present: as per HPI - Genitourinary Genitourinary: Absent: dysuria - Musculoskeletal Musculoskeletal: Present: muscle weakness. Absent: joint swelling - Integumentary/Breasts Integumentary: Present: as per HPI. Absent: wounds - Neurological Neurological: Present: weakness. Absent: dizziness, focal weakness - Psychiatric Psychiatric: Absent: anxiety - Endocrine Endocrine: Absent: palpitations - Hematologic/Lymphatic Hematologic/Lymphatic: Present: easy bleeding, easy bruising Past Medical History Myelofibrosis. Thrombocytopenia, chronic. Frequent epistaxis. Interstitial lung disease requiring 3 L of oxygen (Dr. Austin Cabello) Hypogammaglobulinemia requiring every other week IVIG infusions(Dr. Lisa Cabello ) Type 2 diabetes, controlled.(Dr. Smith) Hypothyroidism. Renal insufficiency. Migraine headaches. Vitamin D deficiency. History of MRSA. Obesity with BMI greater than 30. Surgical History: Hysterectomy, gallbladder. bone marrow biopsy x3. colonoscopy. Left chest port-a-cath 2012 Family History: Family History (Last Reviewed 07/03/17 @ 11:47 by Oswaldo Smith MD) Maternal Grandmother Diabetes Mother Diabetes Thyroid disease Paternal Grandmother Diabetes Cancer of pancreas Colon cancer Maternal Grandfather Thyroid disease Paternal Grandfather Thyroid disease Family History Updates: Reviewed. - Social History Smoking status: Former smoker (she quit 13 years ago) Substance use type: does not use Alcohol intake frequency: holidays/special occasions only Household members: family Social history: PCP: Dr. Baker Onc: Dr. Katey Jett: Dr. Austin Cabello. Endocrine: Dr. Oswaldo Smith ID: Dr. Lisa Cabello Medications Home Medications Medication Instructions Recorded Confirmed Type IMMUNE GLOBULIN (IVIG) Low IGA 1 vial IV Q2WKS #0 06/10/15 09/04/17 History [GAMMAGARD Low IGA] Omeprazole 40 mg PO HS #0 06/10/15 09/04/17 History Acetaminophen [Acetaminophen Extra 1,000 mg PO Q6H PRN 07/29/17 09/04/17 History Strength] Albuterol Sulfate [Proair Hfa] 2 puff INH Q4H PRN 07/29/17 09/04/17 History Ergocalciferol (Vitamin D2) 50,000 unit PO TUSA@1500 07/29/17 09/04/17 History [Vitamin D2] Insulin Degludec *U100* [Tresiba 20 unit SQ HS 07/29/17 09/04/17 History Flextouch U-100 Pen] Levothyroxine Sodium 75 mcg PO HS 07/29/17 09/04/17 History Levothyroxine Sodium 300 mcg PO HS 07/29/17 09/04/17 History Methylprednisolone Sod Succ/Pf 1,000 mg IV Q2WKS 07/29/17 09/04/17 History [Solu-Medrol 1,000 mg Vial] diphenhydrAMINE HCl [Benadryl] 25 mg PO Q2WKS 07/29/17 09/04/17 History Ruxolitinib Phosphate [Jakafi] 5 mg PO BID 08/25/17 09/04/17 History Levofloxacin [Levaquin] 500 mg PO DAILY 09/04/17 09/04/17 History Oseltamivir Phosphate [Oseltamivir 75 mg PO BID 09/04/17 09/04/17 History Phosphate] Allergies Allergy/AdvReac Type Severity Reaction Status Date / Time amoxicillin Allergy Intermediate HIVES Verified 09/04/17 11:59 erythromycin base Allergy Intermediate HIVES Verified 09/04/17 11:59 ondansetron Allergy Intermediate HIVES Verified 09/04/17 11:59 Penicillins Allergy Intermediate HIVES Verified 09/04/17 11:59 Sulfa (Sulfonamide Allergy Intermediate HIVES Verified 09/04/17 11:59 Antibiotics) NSAIDS (Non-Steroidal Allergy Unknown DO NOT Verified 09/04/17 11:59 Anti-Inflamma GIVE D/T KIDNEY FUNCTION cephalexin [From Keflex] Allergy Hives Verified 09/04/17 11:59 ketorolac AdvReac Unknown Verified 09/04/17 11:59 Exam Vital Signs: Temperature 97.5 F 09/04/17 11:59 Pulse Rate 106 H 09/04/17 11:59 Respiratory Rate 19 09/04/17 11:59 Blood Pressure 120/84 09/04/17 11:59 Pulse Oximetry 88 L 09/04/17 11:59 Height/Weight/BMI: Height 1.55 m Weight 90.718 kg - Constitutional Present: no acute distress, well nourished, well developed, obese - Routine HEENT Exam Head: Present: normocephalic Eye: Present: PERRL. Absent: conjunctival icterus, scleral injection ENT: Present: mucous membranes moist Comments: Cotton packing inserted into right nares that is starting to become saturated with bright red blood. There is fresh blood in her posterior pharynx. She is able to tolerate her secretions, spit them out, and swallow without difficulty. - Routine Neck Exam Present: supple - Routine Respiratory Exam Present: CTA bilaterally - Routine Cardiovascular Exam Present: RRR, S1, S2 - Routine Abdominal Exam Present: soft, normoactive bowel sounds, non distended, non tender - Routine Extremities Exam Present: no edema, pulses intact - Routine Skin Exam Present: intact, dry (extremely dry skin with scaling skin to both lower extremities), warm, ecchymosis (bilateral arms) - Routine Neurological Exam Present: alert, oriented X3, CN II-XII intact, moving all extremities, normal speech - Routine Psychiatric Exam Present: normal affect, normal thought process, cooperative Results - Labs CBC & Chem 7: 09/04/17 14:32 09/04/17 14:32 Assessment and Plan (1) Thrombocytopenia Current visit: No Status: Acute Assessment and Plan: IMPRESSION Acute epistaxis. Myelofibrosis. Thrombocytopenia, chronic. Frequent epistaxis. Interstitial lung disease requiring 3 L of oxygen Hypogammaglobulinemia with every other week IVIG infusions. Type 2 diabetes, controlled. Hypothyroidism. Renal insufficiency. Migraine headaches. Vitamin D deficiency. History of MRSA. Obesity with BMI greater than 30. PLAN Admit to observation status under the hospitalist service. Epistaxis, mild, but still not controlled with phenylephrine+lidocaine-soaked cotton. Will try cocaine-soaked cotton and clamp again. Discussed case with Dr. Del Toro. He recommends to give her 1 platelets transfusion and to also start her on prednisone 1 mg/kg per day (=90 mg). She should continue this until she follows up with him in a couple of weeks. We should continue to give her Jakafi. Will check BMP because of poor oral intake and concern for dehydration. Influenza A: Droplet precautions. Her last dose of Tamiflu will be on 09/05/17. Continue oxygen at 3 L. Monitor blood sugars, expecting hyperglycemia from high-dose steroids. Continue insulin degludec HS and will have medium corrective sliding scale insulin available. Follow up at 1630: Procedure note: Removed blood-soaked cotton packing and cleared large clot from right nare. 4% Cocaine-soaked rolled 2x2 gauze inserted into right nare and then clamped. Pt tolerated well. BMP reviewed; will give 1L NS for hydration. Headache unrelieved with Tylenol; pt reports Percocet is helpful when headache is this severe. Percocet 7.5 mg QID PRN. DVT Prophylaxis: SCD's GI Prophylaxis: Protonix Resuscitation Status: Full Code - Physician Narrative Narrative: Date: 09/04/17 Time: 1510 I have independently evaluated and examined this patient. I reviewed the chart, the patient's history, and the [employer]IE[employer]NT/PA's documented findings as above. We discussed and formulated the assessment and plan as above with additions as below. The patient reports that she was seen by Dr. Baker on Friday and started initially on levofloxacin, when her influenza A test was reported as positive she was started on oseltamivir as well. She sees Dr. Lisa Cabello for her hypogammaglobulinemia. She is on IVIG every other week and generally receives it in [place], although sometimes she goes to [facility]. She reports recently she has required more platelet transfusions one about 2 weeks ago, last Friday, Friday of this week, and Friday of this week. She was actually on her way to get lab work today when her nosebleed started. In general, the patient is alert and oriented 3, cooperative with exam, and in no respiratory distress. HEENT: Head is atraumatic, normocephalic, no conjunctival petechiae, no oral thrush, mucous membranes are moist and pink. Packing and right nares with small amount of bloody drainage. She does spit up occasional bright red blood with some clotting. Lungs: Clear to auscultation without wheezes, crackles or rhonchi CV: Regular rate and rhythm without murmur Abdomen: Soft, nontender, bowel sounds are present, there is no guarding no rebound. Extremities: No clubbing, no cyanosis, no edema. Skin: Warm and dry no sign of rash Neuro: Patient is alert IV access: Left chest Port-A-Cath Agree with plans to observe the pt overnight, transfuse with platelets, will stop levofloxacin, continue oseltamivir until Friday a.m., humidify oxygen to decrease the risk of recurrent epistasis Hospital Course Summary Disclaimer: The visit summary below is not to be considered part of the above Progress Note. Hospital Course: 09/04/17 Admit to observation status under the hospitalist service. Epistaxis, mild, but still not controlled with phenylephrine+lidocaine-soaked cotton. Will try cocaine-soaked cotton and clamp again. Discussed case with Dr. Del Toro. He recommends to give her 1 platelets transfusion and to also start her on prednisone 1 mg/kg per day (=90 mg). She should continue this until she follows up with him in a couple of weeks. We should continue to give her Jakafi. Will check BMP because of poor oral intake and concern for dehydration. Influenza A: Droplet precautions. Her last dose of Tamiflu will be on 09/05/17. Continue oxygen at 3 L. Monitor blood sugars, expecting hyperglycemia from high-dose steroids. Continue insulin degludec HS and will have medium corrective sliding scale insulin available. Follow up at 1630: Procedure note: Removed blood-soaked cotton packing and cleared large clot from right nare. 4% Cocaine-soaked rolled 2x2 gauze inserted into right nare and then clamped. Pt tolerated well. BMP reviewed; will give 1L NS for hydration. Headache unrelieved with Tylenol; pt reports Percocet is helpful when headache is this severe. Percocet 7.5 mg QID PRN.
[2017-09-04] MEDS ORDERED: NS FLUSH BAG 500ml IV PRN (15:37)
[2017-09-04] MEDS ORDERED: COCAINE 4% TOP ONE (16:00)
[2017-09-04] MEDS ORDERED: NS 1,000 ML IV ONE (16:31)
[2017-09-04 17:24] VITALS: BMI 38.5
[2017-09-04] MEDS ORDERED: PredniSONE 20 MG TABLET PO ONE (17:30)
[2017-09-04] MEDS: OXYCODONE/APAP 7.5 MG/325 MG TABLET PO PRN (18:15)
[2017-09-04] MEDS: ACETAMINOPHEN 500 MG TABLET PO PRN (20:06)
[2017-09-04] MEDS: INSULIN DEGLUDEC PO SCH (21:07)
[2017-09-04] MEDS: RUXOLITINIB 5 MG PO SCH (21:07)
[2017-09-04] MEDS: LEVOTHYROXINE 75 MCG TABLET PO SCH (21:20)
[2017-09-04] MEDS: OMEPRAZOLE 20 MG CAPSULE PO SCH (21:20)
[2017-09-04] MEDS: LEVOTHYROXINE 100 MCG TABLET PO SCH (21:20)
[2017-09-04] MEDS: INSULIN ASPART 100unit/ml INJECTION SQ PRN (22:34)
[2017-09-05] MEDS: OXYCODONE/APAP 7.5 MG/325 MG TABLET PO PRN ×2 (01:30→12:07)
[2017-09-05] MEDS: INSULIN ASPART 100unit/ml INJECTION SQ PRN ×4 (06:07→20:59)
[2017-09-05] MEDS ORDERED: NS FLUSH BAG 500ml IV PRN (06:08)
[2017-09-05] MEDS: PredniSONE 20 MG TABLET PO SCH (08:59)
[2017-09-05] MEDS ORDERED: LEVOFLOXACIN 500 MG TABLET PO SCH (09:00)
[2017-09-05] MEDS: RUXOLITINIB 5 MG PO SCH ×2 (09:00→21:00)
[2017-09-05] MEDS: ACETAMINOPHEN 500 MG TABLET PO PRN ×2 (10:36→21:09)
--- NOTE | 2017-09-05 17:17 | Progress Note ---
- Date 09/05/17 Subjective: F/U: Acute epistaxis, Myelofibrosis, Thrombocytopenia Doing well today. Not having further nosebleeds. Tolerating nasal packing. Breathing feels stable-not having increased SOA, cough, congestion. Appetite fair. No nausea or ab pain. No f/c. Objective Vital signs: Temperature 97.8 F 09/05/17 15:55 Pulse Rate 63 09/05/17 15:55 Respiratory Rate 16 09/05/17 15:55 Blood Pressure 126/67 09/05/17 15:55 Pulse Oximetry 91 09/05/17 15:55 - Constitutional Present: well nourished, well developed, average body habitus, obese, cooperative - Routine HEENT Exam Head: Present: normocephalic, atraumatic Eye: Present: EOMI, normal accommodation ENT: Present: mucous membranes moist Comments: Nasal packing in right nare - Routine Respiratory Exam Present: decreased breath sounds. Absent: rales, respiratory distress, rhonchi , stridor, wheezes - Routine Cardiovascular Exam Present: RRR, no murmur - Routine Abdominal Exam Present: soft, normoactive bowel sounds, non distended, non tender. Absent: guarding - Routine Extremities Exam Present: no edema, pulses intact. Absent: cyanosis, clubbing - Routine Musculoskeletal Exam Musculoskeletal: Present: no clubbing or cyanosis - Routine Skin Exam Present: dry, warm - Routine Neurological Exam Present: alert, oriented X3, CN II-XII intact, vision grossly intact, hearing grossly intact, normal speech. Absent: motor deficit, abnormal gait - Routine Psychiatric Exam Present: normal affect, normal thought process, cooperative, good insight, good judgment Results - Labs CBC & Chem 7: 09/05/17 12:21 09/05/17 05:17 Assessment and Plan (1) Thrombocytopenia Current visit: No Status: Acute Assessment and Plan: IMPRESSION Acute epistaxis Myelofibrosis Thrombocytopenia, acute on chronic Frequent epistaxis Influenza type A - on treatment Interstitial lung disease requiring 3 L of oxygen Hypogammaglobulinemia with every other week IVIG infusions Type 2 diabetes, controlled Hypothyroidism Stage II CKD Migraine headaches Vitamin D deficiency History of MRSA Obesity with BMI 39.2 PLAN Platelets decreased to 3 this am. With recent nosebleed and decreasing platelets , will change admission status to inpatient. 1 unit platelet phoresis pack given - platelets increased to 13. Continue with supportive care. Recheck CBC in am secondary to thrombocytopenia. Will check CMP and Mg in am due to DM and medication use. Case discussed with CM. Time spent with patient care 25 minutes. DVT Prophylaxis: SCD's Resuscitation Status: Full Code - Time spent with patient Time with patient PN: 25 minutes - Physician Narrative Physician: Andriy Downs MD Narrative: Date: 09/05/17 Time: 1714 Hospital Course Summary Disclaimer: The visit summary below is not to be considered part of the above Progress Note. Hospital Course: 09/04/17 Admit to observation status under the hospitalist service. Epistaxis, mild, but still not controlled with phenylephrine+lidocaine-soaked cotton. Will try cocaine-soaked cotton and clamp again. Discussed case with Dr. Del Toro. He recommends to give her 1 platelets transfusion and to also start her on prednisone 1 mg/kg per day (=90 mg). She should continue this until she follows up with him in a couple of weeks. We should continue to give her Jakafi. Will check BMP because of poor oral intake and concern for dehydration. Influenza A: Droplet precautions. Her last dose of Tamiflu will be on 09/05/17. Continue oxygen at 3 L. Monitor blood sugars, expecting hyperglycemia from high-dose steroids. Continue insulin degludec HS and will have medium corrective sliding scale insulin available. Follow up at 1630: Procedure note: Removed blood-soaked cotton packing and cleared large clot from right nare. 4% Cocaine-soaked rolled 2x2 gauze inserted into right nare and then clamped. Pt tolerated well. BMP reviewed; will give 1L NS for hydration. Headache unrelieved with Tylenol; pt reports Percocet is helpful when headache is this severe. Percocet 7.5 mg QID PRN. 09/05/17 Platelets decreased to 3 this am. With recent nosebleed and decreasing platelets , will change admission status to inpatient. 1 unit platelet phoresis pack given - platelets increased to 13.
[2017-09-05] MEDS: PredniSONE 10 MG TABLET PO SCH (17:23)
[2017-09-05] MEDS: OMEPRAZOLE 20 MG CAPSULE PO SCH (20:58)
[2017-09-05] MEDS: LEVOTHYROXINE 100 MCG TABLET PO SCH (20:59)
[2017-09-05] MEDS: LEVOTHYROXINE 75 MCG TABLET PO SCH (20:59)
[2017-09-05] MEDS: INSULIN DEGLUDEC PO SCH (21:00)
[2017-09-06 08:31] VITALS: RESP 20
[2017-09-06] MEDS: PredniSONE 20 MG TABLET PO SCH (08:35)
[2017-09-06] MEDS ORDERED: OSELTAMIVIR 75 MG PO SCH (09:00)
[2017-09-06] MEDS ORDERED: NS FLUSH BAG 500ml IV PRN (09:28)
[2017-09-06] MEDS: RUXOLITINIB 5 MG PO SCH (09:53)
[2017-09-06] MEDS: ACETAMINOPHEN 500 MG TABLET PO PRN ×2 (10:40→16:28)
[2017-09-06] MEDS: INSULIN ASPART 100unit/ml INJECTION SQ PRN ×2 (12:11→17:17)
[2017-09-06] MEDS: OXYCODONE/APAP 7.5 MG/325 MG TABLET PO PRN ×2 (12:12→18:11)
--- NOTE | 2017-09-06 13:01 | Progress Note ---
- Date 09/06/17 Subjective: Rica is seen today in follow up. She has finished getting platelet transfusion and complaints of having a headache. She request to have nasal packing removed and has had no further nosebleeds. Otherwise, she denies having shortness of breath, chest pain, or GI complaints. States appetite has been good. Objective Vital signs: Temperature 97.8 F 09/06/17 08:30 Pulse Rate 69 09/06/17 08:30 Respiratory Rate 20 09/06/17 08:30 Blood Pressure 120/71 09/06/17 08:30 Pulse Oximetry 100 09/06/17 08:30 Height/Weight/BMI: Weight 93.6 kg - Constitutional Present: no acute distress, well nourished, well developed - Routine HEENT Exam Eye: Present: EOMI ENT: Present: mucous membranes moist, dentition normal - Routine Respiratory Exam Present: CTA bilaterally. Absent: wheezes - Routine Cardiovascular Exam Present: RRR, S1, S2. Absent: murmur - Routine Abdominal Exam Present: soft, normoactive bowel sounds, non distended. Absent: tenderness - Routine Extremities Exam Present: normal capillary refill - Routine Skin Exam Present: intact, dry, warm - Routine Neurological Exam Present: alert, oriented X3, CN II-XII intact - Routine Lymphatic Exam Lymphatic: Absent: adenopathy - Routine Psychiatric Exam Present: normal affect, cooperative Results - Labs CBC & Chem 7: 09/06/17 14:27 09/06/17 03:50 Assessment and Plan (1) Thrombocytopenia Current visit: No Status: Acute Assessment and Plan: IMPRESSION Acute epistaxis Myelofibrosis Thrombocytopenia, acute on chronic Frequent epistaxis Influenza type A - on treatment Interstitial lung disease requiring 3 L of oxygen Hypogammaglobulinemia with every other week IVIG infusions Type 2 diabetes, controlled Hypothyroidism Stage II CKD Migraine headaches Vitamin D deficiency History of MRSA Obesity with BMI 39.2 PLAN Platelet transfusion 1 unit this morning. No further episodes of epistaxis. Will remove nasal packing by moistening 2 x 2 and gently removing from an air. Instructed nursing staff to monitor for evidence of bleeding Commended trying Percocet for better pain control of headache. As discussed with attending, Dr. Downs DVT Prophylaxis: SCD's Resuscitation Status: Full Code - Time spent with patient Time with patient PN: 25 minutes - Physician Narrative Narrative: Date: 09/06/17 Time: 1257 Have independently interviewed and examined pt. Chart reviewed. Case discussed with my RETAIL MARKETING EXECUTIVE. Care plan developed with my supervision; agree with above. Doing okay today. Tolerated platelet transfusion. Nasal packing removed and not having further nose bleeds. Eating close to baseline (appetite decreased since her flu infection, but steroids increasing appetite). Breathing stable. No f/c. Lungs: decreased, no distress CV: regular MSE: awake alert appropriate Plan: With resolution of nose bleed, can discharge to home. May use Hickman gel to help moisturize nasal passages. Continue with 90mg of Prednisone in divided doses until patient follows with Dr Del Toro - will add 8 units of insulin with meal to help sugar control. See orders for details. Hospital Course Summary Disclaimer: The visit summary below is not to be considered part of the above Progress Note. Hospital Course: 09/04/17 Admit to observation status under the hospitalist service. Epistaxis, mild, but still not controlled with phenylephrine+lidocaine-soaked cotton. Will try cocaine-soaked cotton and clamp again. Discussed case with Dr. Del Toro. He recommends to give her 1 platelets transfusion and to also start her on prednisone 1 mg/kg per day (=90 mg). She should continue this until she follows up with him in a couple of weeks. We should continue to give her Jakafi. Will check BMP because of poor oral intake and concern for dehydration. Influenza A: Droplet precautions. Her last dose of Tamiflu will be on 09/05/17. Continue oxygen at 3 L. Monitor blood sugars, expecting hyperglycemia from high-dose steroids. Continue insulin degludec HS and will have medium corrective sliding scale insulin available. Follow up at 1630: Procedure note: Removed blood-soaked cotton packing and cleared large clot from right nare. 4% Cocaine-soaked rolled 2x2 gauze inserted into right nare and then clamped. Pt tolerated well. BMP reviewed; will give 1L NS for hydration. Headache unrelieved with Tylenol; pt reports Percocet is helpful when headache is this severe. Percocet 7.5 mg QID PRN. 09/05/17 Platelets decreased to 3 this am. With recent nosebleed and decreasing platelets , will change admission status to inpatient. 1 unit platelet phoresis pack given - platelets increased to 13. 09/06/17 Platelet transfusion 1 unit this morning No further episodes of epistaxis. Will remove nasal packing by moistening 2 x 2 and gently removing from an air. Instructed nursing staff to monitor for evidence of bleeding. Commended trying Percocet for better pain control of headache. With resolution of nose bleed, can discharge to home. No bleeding post removal of nasal packing. May use Hickman gel to help moisturize nasal passages. Continue with 90mg of Prednisone in divided doses until patient follows with Dr Del Toro. Will add 8 units of insulin with meal to help sugar control. F/U with Dr Del Toro in near future. F/U with Dr Baker in 1 week for medical evaluation. See orders for details.
[2017-09-06] MEDS ORDERED: SALINE NASAL GEL 14.1gm TOP PRN (13:51)
--- NOTE | 2017-09-06 15:00 | Discharge Summary ---
Discharge Information Date of admission: 09/05/17 10:42 Anticipated date of discharge: 09/06/17 Attending Physician: Andriy Downs MD Primary care physician: Kenny Baker DO - Discharge Diagnosis (1) Thrombocytopenia Status: Acute Discharge diagnosis Acute epistaxis Associated conditions and complication Myelofibrosis Thrombocytopenia, acute on chronic Frequent epistaxis Influenza type A - on treatment Interstitial lung disease requiring 3 L of oxygen Hypogammaglobulinemia with every other week IVIG infusions Type 2 diabetes, controlled Hypothyroidism Stage II CKD Migraine headaches Vitamin D deficiency History of MRSA Obesity with BMI 39.2 - Laboratory Labs: Laboratory Tests 09/04/17 14:32 WBC 4.8 Hgb 10.3 L Hct 32.7 L MCV 89.1 Plt Count 9 L* Laboratory Tests 09/04/17 14:32 Sodium 144 Potassium 4.7 Chloride 110 H Carbon Dioxide 21 L Anion Gap 13 BUN 14.0 Creatinine 0.8 GFR Calculation 79 BUN/Creatinine Ratio 18 Glucose 159 H Calculated Osmolality 281 H Calcium 9.8 09/06/17 14:27 09/06/17 03:50 History of Present Illness HPI: Rica Louie is a 42-year-old woman with a history of myelofibrosis. She has chronic thrombocytopenia and frequent epistaxis. In fact, she was admitted in July with the same problem. To complicate matters, she is on chronic oxygen secondary to interstitial lung disease, and was diagnosed with influenza A on September 01. She is on day 4 of 5 of Tamiflu, as well as levofloxacin which was started empirically at the same time. She began having right-sided epistaxis on 09/04/17, with blood dripping down the back of her throat. She complains of headache and neck pain. She has continued her typical oxygen flow rate. She has had URI symptoms and cough. She feels weak in general but denies dizziness or lightheadedness. She hasn't had much of an appetite, and thinks she is dehydrated because her skin is more dry than usual. She has not had any nausea or vomiting. She denies diarrhea, constipation. In addition to epistaxis, she states that she often has a little bit of bright red bleeding per rectum after she uses the bathroom. She tends to bruise easily. She presented to [facility] emergency department, where a nasal clamp was placed, and later phenylephrine and lidocaine-soaked gauze was inserted into her right nare. She continued to spit out bright red blood and small clots every few minutes, but she did not have any difficulty managing her airway or swallowing. An ENT specialist was consulted from the emergency department, who recommended clamping or use of an Epistat catheter, which is not available here. The ENT recommended discharge home with clamping, however, given her complications, the hospitalist service was consulted for admission to observation status. Platelet count at 1119 was 7000, and on repeat lab draw at 1432 had increased to 9000. Her hemoglobin during the same time was 11 and 10.3, respectively. For complete details of the H&P refer to that document. Objective Vital signs: Temperature 97.8 F 09/06/17 08:30 Pulse Rate 69 09/06/17 08:30 Respiratory Rate 20 09/06/17 08:30 Blood Pressure 120/71 09/06/17 08:30 Pulse Oximetry 100 09/06/17 08:30 Height/Weight/BMI: Weight 93.6 kg Hospital Course This is a general summary of the patient's hospital course. For more details refer to the complete medical record. Hospital course: 09/04/17 Admit to observation status under the hospitalist service. Epistaxis, mild, but still not controlled with phenylephrine+lidocaine-soaked cotton. Will try cocaine-soaked cotton and clamp again. Discussed case with Dr. Del Toro. He recommends to give her 1 platelets transfusion and to also start her on prednisone 1 mg/kg per day (=90 mg). She should continue this until she follows up with him in a couple of weeks. We should continue to give her Jakafi. Will check BMP because of poor oral intake and concern for dehydration. Influenza A: Droplet precautions. Her last dose of Tamiflu will be on 09/05/17. Continue oxygen at 3 L. Monitor blood sugars, expecting hyperglycemia from high-dose steroids. Continue insulin degludec HS and will have medium corrective sliding scale insulin available. Follow up at 1630: Procedure note: Removed blood-soaked cotton packing and cleared large clot from right nare. 4% Cocaine-soaked rolled 2x2 gauze inserted into right nare and then clamped. Pt tolerated well. BMP reviewed; will give 1L NS for hydration. Headache unrelieved with Tylenol; pt reports Percocet is helpful when headache is this severe. Percocet 7.5 mg QID PRN. 3/23/18 Platelets decreased to 3 this am. With recent nosebleed and decreasing platelets , will change admission status to inpatient. 1 unit platelet phoresis pack given - platelets increased to 13. 09/06/17 Platelet transfusion 1 unit this morning No further episodes of epistaxis. Will remove nasal packing by moistening 2 x 2 and gently removing from an air. Instructed nursing staff to monitor for evidence of bleeding. Commended trying Percocet for better pain control of headache. With resolution of nose bleed, can discharge to home. No bleeding post removal of nasal packing. May use [place] gel to help moisturize nasal passages. Continue with 90mg of Prednisone in divided doses until patient follows with Dr Del Toro. Will add 8 units of insulin with meal to help sugar control. F/U with Dr Del Toro in near future. F/U with Dr Baker in 1 week for medical evaluation. See orders for details. Time spent with patient: discharge greater than 30 minutes Resuscitation Status: Full Code Discharge Plan - Discharge Disposition Discharge Date: 09/06/17 Disposition: Discharged Home, Self-Care *Condition: Stable Reason For Visit (Visit label in EMR): epistaxis and thrombocytopenia - Discharge Medications *Discharge Medications: New Oxycodone/Apap 7.5/325 [Percocet 7.5/325] 1 tab PO Q6H PRN #30 tab PRN Reason: Pain PredniSONE [Deltasone 20 mg] 60 mg PO WB #60 tab PredniSONE [Deltasone 10 mg] 30 mg PO WS tab Sodium Chloride Nasal Gel [[place] Nasal Gel] 1 applicatio TOP QID PRN tube PRN Reason: nasal dryness Insulin Aspart [NovoLOG] 8 unit SQ WM #1 vial Continue Levothyroxine Sodium 75 mcg PO HS Ergocalciferol (Vitamin D2) [Vitamin D2] 50,000 unit PO TUSA@1500 Albuterol Sulfate [Proair Hfa] 2 puff INH Q4H PRN PRN Reason: Prn Orders Methylprednisolone Sod Succ/Pf [Solu-Medrol 1,000 mg Vial] 1,000 mg IV Q2WKS diphenhydrAMINE HCl [Benadryl] 25 mg PO Q2WKS Acetaminophen [Acetaminophen Extra Strength] 1,000 mg PO Q6H PRN PRN Reason: Pain Oseltamivir Phosphate 75 mg PO BID IMMUNE GLOBULIN (IVIG) Low IGA [GAMMAGARD Low IGA] 1 vial IV Q2WKS #0 Omeprazole 40 mg PO HS #0 Levothyroxine Sodium 300 mcg PO HS Insulin Degludec *U100* [Tresiba Flextouch U-100 Pen] 20 unit SQ HS Ruxolitinib Phosphate [Jakafi] 5 mg PO BID Discontinued Levofloxacin [Levaquin] 500 mg PO DAILY - Discharge Packet/Instructions *Diet: 2000 KCAL ADA low sodium *Activity: As tolerated *Pain Management/Treatment: May use Percocet 7.5/325 to help pain. Maximum 3250mg of acetaminophen in any 24 hour period of time. *Wound Care: n/a Additional Instructions: May use [place] gel as needed for dry nose - safe to use with oxygen. Use 8 units of insulin before meals. May need to adjust dose based on blood sugar levels. Use 90mg of Prednisone daily. May use 60mg of Prednisone with breakfast and 30mg Prednisone with evening meal. *Expected Signs/Symptoms: Decreased nose bleeds. *Notify Physician if: Uncontrolled nose bleed. *During Business Hours Contact: Dr Del Toro or Dr Baker *After Business Hours Contact: Call [facility] [place] and have your care provider contacted. *Pending Lab/Results: No Pending Lab - Referrals/Follow Up *Referrals/Follow Up: Mauro Del Toro MD [Physician] - (As scheduled ) Kenny Baker DO [Family Provider] - 1 Week (For PCP care) - Patient Handouts - Dismissal Complete Discharge Instructions are:: Complete Physician Narrative - Narrative Physician: Andriy Downs MD Attestation Narrative: Date: 09/06/17 Time: 6490 I have independently interviewed and examined patient prior to discharge. Chart reviewed. See my progress note from today for details. Medically stable for discharge to home.
[2017-09-06 15:34] VITALS: BP 120/77; PULSE 70; TEMP 98.1; O2SAT 97
[2017-09-06] MEDS: PredniSONE 10 MG TABLET PO SCH (17:17)
== END 2017-09-06 18:42 | disposition home or self-care (01) | DRG 813 ==
LOC: ED 11:49 → MED 11:49 → SUATTDRO 09-05 10:42
PROVIDERS: ADMIT Internal Medicine Infectious Disease; ATTEND Hospitalist

== ENCOUNTER 2017-12-21 21:40 | Inpatient (IN) ==
[2017-12-21] MEDS ORDERED: PROCHLORPERAZINE 10 MG/2 ML INJECTION IVP ONE (21:50)
[2017-12-21] MEDS ORDERED: NS 1,000 ML IV ONE (21:51)
[2017-12-21] MEDS ORDERED: ACETAMINOPHEN 500 MG TABLET PO ONE (21:52)
[2017-12-21] MEDS ORDERED: ALBUTEROL/IPRATROPIUM 2.5mg-0.5mg/3ml NEB AEROSOL ONE (21:56)
--- NOTE | 2017-12-21 22:00 | Emergency Department Report ---
General Adult HPI - General Chief complaint: Nausea/Vomiting/Diarrhea Stated complaint: fever, head ache, naus/d Time Seen by Provider: 12/21/17 21:43 Source: patient Mode of arrival: ambulatory Limitations: no limitations - History of Present Illness HPI narrative: Patient presents with 1-2 day history of fevers, malaise, headaches, myalgia, nausea, diarrhea, and increasing dyspnea. Patient feels like she has the flu, similar to when she had influenza a in August of this year. Patient has significant past medical history including interstitial lung disease , renal insufficiency, type 2 diabetes, myeloproliferative disorder, and obesity. - Related Data Home Medications Medication Instructions Recorded Confirmed IMMUNE GLOBULIN (IVIG) Low IGA 1 vial IV Q2WKS #0 06/10/15 12/21/17 [GAMMAGARD Low IGA] Omeprazole 40 mg PO HS #0 06/10/15 12/21/17 Acetaminophen [Acetaminophen Extra 1,000 mg PO Q6H PRN 07/29/17 12/21/17 Strength] Albuterol Sulfate [Proair Hfa] 2 puff INH Q4H PRN 07/29/17 12/21/17 Ergocalciferol (Vitamin D2) 50,000 unit PO TUSA@1500 07/29/17 12/21/17 [Vitamin D2] Levothyroxine Sodium 300 mcg PO HS 07/29/17 12/21/17 Methylprednisolone Sod Succ/Pf 1,000 mg IV Q2WKS 07/29/17 12/21/17 [Solu-Medrol 1,000 mg Vial] diphenhydrAMINE HCl [Benadryl] 25 mg PO Q2WKS 07/29/17 12/21/17 Ruxolitinib Phosphate [Jakafi] 5 mg PO BID 08/25/17 12/21/17 Previous Rx's Medication Instructions Recorded Oxycodone/Apap 7.5/325 [Percocet 1 tab PO Q6H PRN #30 tab 09/06/17 7.5/325] Sodium Chloride Nasal Gel [[place] 1 applicatio TOP QID PRN tube 09/06/17 Nasal Gel] Novolog (insulin aspart) 100 20 unit SQ WM #2 vial 09/23/17 unit/mL Soliqua (insulin glargine) 100 0.3 ml SQ QAM #15 ml 10/22/17 unit-lixisenatide 33 mcg/mL(3 mL)PEN levothyroxine 100 mcg tablet 100 mcg PO HS #90 tab 10/28/17 Allergies Allergy/AdvReac Type Severity Reaction Status Date / Time amoxicillin Allergy Intermediate HIVES Verified 12/04/17 10:53 erythromycin base Allergy Intermediate HIVES Verified 12/04/17 10:53 ondansetron Allergy Intermediate HIVES Verified 12/04/17 10:53 Penicillins Allergy Intermediate HIVES Verified 12/04/17 10:53 Sulfa (Sulfonamide Allergy Intermediate HIVES Verified 12/04/17 10:53 Antibiotics) NSAIDS (Non-Steroidal Allergy Unknown DO NOT Verified 12/04/17 10:53 Anti-Inflamma GIVE D/T KIDNEY FUNCTION cephalexin [From Keflex] Allergy Hives Verified 12/04/17 10:53 ketorolac AdvReac Unknown Verified 12/04/17 10:53 Review of Systems All systems: reviewed and negative except as stated PFSH Patient Stated Medical History Cerebrovascular Accident No Migraine Yes Peripheral Neuropathy Yes Seizures No Syncope No Transient Ischemic Attacks ( No TIA) Cataracts No Dental Problems No Glaucoma No Hearing Loss No Macular Degeneration No Other HEENT Yes: sinus problems, epistaxis. Cardiac Arrhythmia No Congestive Heart Failure No Heart Murmur Yes Myocardial Infarction No Asthma Yes Bronchitis Yes Pneumonia Yes Sleep Apnea No Other Respiratory Yes: interstitial lung disease-pneumocytosis Diabetes Mellitus Type 2 Yes Gastroesophageal Reflux Yes Disease Hiatal Hernia No Ulcer No Hx Renal Disease Yes: renal deficiency Hx Urinary Tract Infection Yes: HX OF Anemia Yes Blood Disorders Yes: low platelet count, myelofibrosis Clotting Problems Yes Osteoarthritis No Cellulitis Yes: leg Herpes Yes MRSA Yes: hand Sepsis No Vancomycin-Resistant No Enterococci Anesthesia Reactions No Blood Transfusions Yes: Last Blood in October of 2015. Platelets in May of 2016. Other Yes: Immunoglobulin deficiency Fibroids No Ovarian Cysts Yes Post Menopausal Yes Clinic Medical History (Last Reviewed 12/04/17 @ 10:53 by MICHAEL Gonzalez) Diabetes mellitus type 2, controlled (Chronic Medical ~2004) Has gained a lot of weight on additional insulin while taking steroids. A better approach would be to use a GLP-1 drug instead of Novolog. Vitamin D deficiency (Chronic Medical) Still very deficient. Hypothyroidism (Chronic Medical ~1982) Clinically euthyroid. Obesity (BMI 30-39.9) (Chronic Medical) Too much weight gain. Migraines Peripheral neuropathy Sinus problems Interstitial lung disease/pneumocytosis GERD Chronic renal insufficiency Myelofibrosis, low platelets Immunoglobulin deficiency Surgical History: Hysterectomy, gallbladder, port placement. bone marrow biopsy x3. colonoscopy Family History: Family History (Last Reviewed 12/04/17 @ 10:53 by Gwen Helms [facility]) Maternal Grandmother Diabetes Mother Diabetes Thyroid disease Paternal Grandmother Diabetes Cancer of pancreas Cancer of colon Maternal Grandfather Thyroid disease Paternal Grandfather Thyroid disease Family History Updates: Updated - Social History Smoking status: Former smoker Substance use type: does not use Alcohol intake frequency: holidays/special occasions only Household members: family Current occupational status: unemployed Physical Exam - Limitations Limitations: no limitations - General General appearance: alert, other (patient is mildly hypoxemic. Normally uses 3 L of oxygen, and is saturating at 89% on 3 L. Patient has bumped up to 3.5 L and is oxygenating at 91-92%.) - Normal Exams: Head:: Normocephalic without trauma Eyes:: Pupils are PERRLA w/ EOMI, No scleral icterus, irritation, or foreign bodies noted ENMT:: No facial trauma, nasal exudates, pharyngeal erythema, or exudates are noted Neck:: Full range of motion, without adenopathy, JVD, bruits or thyromegaly Abdomen:: Bowel sounds positive, soft, non-tender, non-distended, no hepatosplenomegaly, masses or bruits noted Lymphatic:: No lymphadenopathy, or lymphedema noted Musculoskeletal:: No tenderness, or deformity noted, good range of motion, all extremities Integumentary:: No rashes, hives, or bruising noted, hair and nails, without abnormality Neurological:: Patient is alert, and oriented, cranial nerves, motor/sensory/ cerebellar, exams w/o gross deficits, to observation Psychiatric:: Patient exhibits, appropriate attention, emotion and affect - Chest Chest inspection: Present: normal inspection, symmetric chest wall rise. Absent : tenderness - Respiratory Respiratory exam: Present: wheezes, prolonged expiratory phase. Absent: normal lung sounds bilaterally (course tight wheezes bilaterally), respiratory distress , stridor, accessory muscle use - Cardiovascular Cardiovascular exam: Present: tachycardia, normal heart sounds Course Vital Signs Temperature 100.4 F 12/21/17 21:49 Pulse Rate 123 H 12/21/17 21:49 Respiratory Rate 24 12/21/17 21:49 Blood Pressure 105/55 12/21/17 21:49 Pulse Oximetry 91 12/21/17 21:49 Temperature 100.4 F 12/21/17 21:49 Pulse Rate 123 H 12/21/17 21:49 Respiratory Rate 24 12/21/17 21:49 Blood Pressure 105/55 12/21/17 21:49 Pulse Oximetry 91 12/21/17 21:49 Medical Decision Making - [facility] Narrative Medical decision making narrative: Patient is given 1 L normal saline IV fluid bolus, Tylenol for fever, and 2 nebs 2 for wheezing CBC - n CMP - n CXR - chronic fibrotic changes only, no consolidations are seen Lactate - normal Respiratory panel - negative Patient is breathing much easier and is able to be weaned back to her normal 2.5 L of oxygen, saturating 95%. She feels as though she is breathing back to her normal. However after treatments with 1 L normal saline patient's pulse was still 115 to 120, blood pressure is still borderline at 97/56. In discussing with the patient her current status, she states that she still feels moderately ill, and when given the option patient states that she feels like she should be in the hospital. Case is discussed with Dr. Mann Hernandez, we will admit inpatient, continue IV fluids, start with one dose of IV Levaquin 750 mg, and Urinalysis. - Lab Data Result diagrams: 12/21/17 22:13 12/21/17 22:37 Disposition Clinical Impression: Tachycardia Fever Qualifiers: Fever type: unspecified Qualified Code(s): R50.9 - Fever, unspecified Disposition: 02 To [facility] [place] Acute Care Condition: Stable Prescriptions: No Action Ergocalciferol (Vitamin D2) [Vitamin D2] 50,000 unit PO TUSA@1500 Albuterol Sulfate [Proair Hfa] 2 puff INH Q4H PRN PRN Reason: Prn Orders Methylprednisolone Sod Succ/Pf [Solu-Medrol 1,000 mg Vial] 1,000 mg IV Q2WKS diphenhydrAMINE HCl [Benadryl] 25 mg PO Q2WKS Acetaminophen [Acetaminophen Extra Strength] 1,000 mg PO Q6H PRN PRN Reason: Pain Oxycodone/Apap 7.5/325 [Percocet 7.5/325] 1 tab PO Q6H PRN #30 tab PRN Reason: Pain Sodium Chloride Nasal Gel [[place] Nasal Gel] 1 applicatio TOP QID PRN tube PRN Reason: nasal dryness IMMUNE GLOBULIN (IVIG) Low IGA [GAMMAGARD Low IGA] 1 vial IV Q2WKS #0 Omeprazole 40 mg PO HS #0 Levothyroxine Sodium 300 mcg PO HS Ruxolitinib Phosphate [Jakafi] 5 mg PO BID Novolog (insulin aspart) 100 unit/mL 20 unit SQ WM #2 vial Soliqua (insulin glargine) 100 unit-lixisenatide 33 mcg/mL(3 mL)PEN 0.3 ml SQ QAM #15 ml levothyroxine 100 mcg tablet 100 mcg PO HS #90 tab Referrals: Kenny Baker DO [Primary Care Provider] - - Seen By: physician
[2017-12-21] MEDS: SALINE FLUSH 10ml SYRINGE IVF PRN (22:49)
[2017-12-22] MEDS ORDERED: NS 1,000 ML IV ONE (00:53)
[2017-12-22] MEDS ORDERED: LEVOFLOXACIN PB 750 MG/150 ML BAG IV ONE (00:54)
[2017-12-22] MEDS ORDERED: PANTOPRAZOLE 40 MG INJECTION IVP SCH (01:55)
[2017-12-22] MEDS ORDERED: HYDROCODONE/APAP 5mg/325mg TABLET PO PRN (01:55)
[2017-12-22] MEDS ORDERED: MORPHINE SULFATE 4mg INJECTION IVP PRN (01:55)
[2017-12-22] MEDS ORDERED: DEXTROSE 50% SYRINGE 50ml (1 AMP) IVP PRN (01:55)
[2017-12-22 02:05] VITALS: BMI 43.9
--- NOTE | 2017-12-22 02:11 | History & Physical Report ---
History of Present Illness Date: 12/22/17 Chief complaint: I feel bad HPI: This is a 42 y/o female who has a history of myelofibrosis with chronic thrombocytopenia. 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 The patient also has interstitial fibrosis of her lungs and is on 3 l of oxygen chronically. Yesterday she had onset of "flu" type symptoms including myalgias, headache, fever, chills and sweats with a cough that became productive of green sputum. The patient had further development of congestion, ear fullness, and diarrhea. No blood in her stools. The patient presents to the ED and her workup is benign in general. CXR chronic changes without discrete infiltrate. Labs are reassuring. She continues to be tachycardic with significant fever. The patient will be admitted for fluids and IV antibiotics for presumed upper respiratory infection. Review of Systems All systems PM: 10-point ROS was reviewed, no additional remarkable complaints except Past Medical History Medical History: Medical History (Last Updated 12/22/17 @ 10:36 by Antonia Marion MD) Myelofibrosis (Acute) With thrombocytopenia, managed by Dr. Del Toro IgG deficiency (Acute) IVIG infusions every 2 weeks, Dr. Lisa Cabello Diabetes mellitus type 2, controlled (Chronic) Onset Date: ~2004 Has gained a lot of weight on additional insulin while taking steroids. A better approach would be to use a GLP-1 drug instead of Novolog. Vitamin D deficiency (Chronic) Still very deficient. Hypothyroidism (Chronic) Onset Date: ~1982 Clinically euthyroid. Obesity (BMI 30-39.9) (Chronic) Too much weight gain. Chronic kidney disease (CKD) Stage II-3 Hx MRSA infection Interstitial lung disease 3 L O2, Dr. Aguila Cabello Vitamin D deficiency Surgical History: Hysterectomy, gallbladder, port placement. bone marrow biopsy x3. colonoscopy Family History: Family History (Last Reviewed 12/04/17 @ 10:53 by MICHAEL Gonzalez) Maternal Grandmother Diabetes Mother Diabetes Thyroid disease Paternal Grandmother Diabetes Cancer of pancreas Cancer of colon Maternal Grandfather Thyroid disease Paternal Grandfather Thyroid disease Family History: As Above - Social History Smoking status: Former smoker Substance use type: does not use Alcohol intake frequency: does not drink Housing: house Household members: spouse Current occupational status: unemployed Current occupational exposures/hazards: No Current residence: Apartment/Private Home Medications Home Medications Medication Instructions Recorded Confirmed Type IMMUNE GLOBULIN (IVIG) Low IGA 1 vial IV Q2WKS #0 06/10/15 12/21/17 History [GAMMAGARD Low IGA] Omeprazole 40 mg PO HS #0 06/10/15 12/21/17 History Acetaminophen [Acetaminophen Extra 1,000 mg PO Q6H PRN 07/29/17 12/21/17 History Strength] Albuterol Sulfate [Proair Hfa] 2 puff INH Q4H PRN 07/29/17 12/21/17 History Ergocalciferol (Vitamin D2) 50,000 unit PO TUSA@1500 07/29/17 12/21/17 History [Vitamin D2] Levothyroxine Sodium 300 mcg PO HS 07/29/17 12/21/17 History Methylprednisolone Sod Succ/Pf 1,000 mg IV Q2WKS 07/29/17 12/21/17 History [Solu-Medrol 1,000 mg Vial] diphenhydrAMINE HCl [Benadryl] 25 mg PO Q2WKS 07/29/17 12/21/17 History Ruxolitinib Phosphate [Jakafi] 5 mg PO BID 08/25/17 12/21/17 History Oxycodone/Apap 7.5/325 [Percocet 1 tab PO Q6H PRN #30 tab 09/06/17 12/21/17 Rx 7.5/325] Sodium Chloride Nasal Gel [[place] 1 applicatio TOP QID PRN tube 09/06/17 12/21/17 Rx Nasal Gel] Novolog (insulin aspart) 100 20 unit SQ WM #2 vial 09/23/17 12/21/17 Rx unit/mL Soliqua (insulin glargine) 100 0.3 ml SQ QAM #15 ml 10/22/17 12/21/17 Rx unit-lixisenatide 33 mcg/mL(3 mL)PEN levothyroxine 100 mcg tablet 100 mcg PO HS #90 tab 10/28/17 12/21/17 Rx Allergies Allergy/AdvReac Type Severity Reaction Status Date / Time amoxicillin Allergy Intermediate HIVES Verified 12/04/17 10:53 erythromycin base Allergy Intermediate HIVES Verified 12/04/17 10:53 ondansetron Allergy Intermediate HIVES Verified 12/04/17 10:53 Penicillins Allergy Intermediate HIVES Verified 12/04/17 10:53 Sulfa (Sulfonamide Allergy Intermediate HIVES Verified 12/04/17 10:53 Antibiotics) NSAIDS (Non-Steroidal Allergy Unknown DO NOT Verified 12/04/17 10:53 Anti-Inflamma GIVE D/T KIDNEY FUNCTION cephalexin [From Keflex] Allergy Hives Verified 12/04/17 10:53 ketorolac AdvReac Unknown Verified 12/04/17 10:53 Exam Vital Signs: Temperature 97.7 F 12/22/17 01:48 Pulse Rate 104 H 12/22/17 01:48 Respiratory Rate 18 12/22/17 01:48 Blood Pressure 101/62 12/22/17 01:48 Pulse Oximetry 98 12/22/17 01:48 Telemetry Rhythm: Sinus Tachycardia Height/Weight/BMI: Height 1.55 m Weight 105.5 kg Body Mass Index 43.9 - Constitutional Present: mild distress - Routine HEENT Exam Head: Present: normocephalic, atraumatic Eye: Present: EOMI, PERRL, conjunctivae pink. Absent: conjunctival icterus, scleral injection ENT: Present: mucous membranes dry - Routine Neck Exam Present: supple, full ROM - Routine Respiratory Exam Comments: dry crackles throughout with occasional wheeze, - Routine Cardiovascular Exam Present: no murmur, tachycardia. Absent: S3 - Routine Abdominal Exam Present: soft, normoactive bowel sounds, non distended, non tender - Routine Extremities Exam Present: edema, non tender, full ROM. Absent: cyanosis, clubbing - Routine Back/Spine/Pelvis Exam Back/Spine: Present: full ROM - Routine Skin Exam Present: intact, dry - Routine Neurological Exam Present: alert, oriented X3, CN II-XII intact, normal tone, vision grossly intact, hearing grossly intact, normal speech. Absent: motor deficit, facial asymmetry - Routine Psychiatric Exam Present: normal affect, normal thought process Results - Labs CBC & Chem 7: 12/22/17 02:22 12/22/17 02:22 Labs: labs reviewed and will be discussed below pCXR without acute process Assessment and Plan (1) Bronchitis Current visit: Yes Status: Acute (2) Thrombocytopenia Current visit: No Status: Acute (3) Tachycardia Current visit: Yes Status: Acute (4) Diabetes mellitus type 2, controlled Problem details: Has gained a lot of weight on additional insulin while taking steroids. A better approach would be to use a GLP-1 drug instead of Novolog. Current visit: No Status: Chronic (5) Hypothyroidism Problem details: Clinically euthyroid. Current visit: No Status: Chronic (6) Obesity (BMI 30-39.9) Problem details: Too much weight gain. Current visit: No Status: Chronic (7) Myelofibrosis Problem details: With thrombocytopenia, managed by Dr. Del Toro Current visit: No Status: Acute (8) IgG deficiency Problem details: IVIG infusions every 2 weeks, Dr. Lisa Cabello Current visit : No Status: Acute Assessment and Plan: 1. bronchitis acute POA: patient is febrile and tachycardic. productive sputum. chronic changes on cxr. cover with levaquin to start with. cx sent. 2. sepsis acute POA: febrile with tachycardia. fluids and repeat markers in the am 3. hyponatremia acute POA: hypovolemic. fluids and repeat in the am 4. DM2 chronic POA: correctional plan 5. thrombocytopenia/myelofibrosis chronic POA: no plt tx indicated currently. aware of issues with epistaxis in the past 6. IgG deficiency chronic POA: ? common variable immune deficiency syndrome. on gammaglobulin to be aware of. obviously immune compromised 7. Interstitial lung disease chronic POA with chronic hypoxic resp failure: continue home meds 8. DVT ppx; SCd, no anticoagulants with hx of epistaxis and chronic thrombocytopenia 9. gastric ppx; PPI DVT Prophylaxis: SCD's GI Prophylaxis: Protonix, Omeprazole Resuscitation Status: Full Code - Time spent with patient Time with patient PN: 50 minutes - Physician Narrative Physician: Antonia Marion MD Narrative: Date: 12/22/17 Time: 12:15 Dr. Hernandez's note reviewed. Rica interviewed and examined. CC: Nausea, vomiting, diarrhea HPI: Rica presented overnight after 1 day history of flu-like symptoms characterized by headache, myalgias, fever up to 104 at home, chills with sweats, cough productive of green sputum, nausea with bilious emesis, and diarrhea. She felt fine on Friday overnight Friday into early Friday morning developed multiple symptoms as above. Patient reports she was last treated with antibiotics about 2 weeks earlier when she was on doxycycline for an upper respiratory infection. She received IVIG one week ago today per usual 2 week schedule. She additionally describes some ear fullness and nasal congestion. In the emergency room initial temperature was 100.4, blood pressure was borderline, and she was tachycardic but did not have leukocytosis or lactic acidosis. She was started on Levaquin and chest x-ray revealed bilateral infiltrates which may have been in excess of her chronic interstitial lung disease. PH/SH/FH: agree with that recorded above by Dr. Hernandez with additions of myelofibrosis with chronic thrombocytopenia, interstitial lung disease on 3 L oxygen, CKD stage II-3, vitamin D deficiency, history of migraines, history MRSA , hypogammaglobulinemia. In addition surgeries reported above she has had a tonsillectomy/adenoidectomy. Patient has no history of illicit drug use and discontinue tobacco use 13 years ago. Her Ry is her alternate decision-maker, she is a full code and her primary care physician is Dr. Baker. She sees Dr. Del Toro for myelofibrosis, Dr. Lisa Cabello for hypogammaglobulinemia, Dr. Aguila Cabello for interstitial lung disease, and Dr. Smith for diabetes/thyroid disease. ROS: 10 point review as above with additions of minor nasal bleeding reported this morning, back pain, and some chronic anxiety/depressive symptoms regarding her multiple chronic illnesses. EXAM: General-obese female, chronically ill appearing, alert and cooperative. 100.3 ( MAXIMUM TEMPERATURE 101.2 overnight), 123/64, 99, 22, 100% on 3 L O2 HEENT-PERRL, EOMI without nystagmus, conjunctiva clear, sclera anicteric, conjugate gaze, facial structures symmetric, oropharynx clear, neck supple and without adenopathy Lungs-respirations nonlabored, good airflow, breath sounds clear anteriorly and upper posterior joyner, faint crackles left base, diminished breath sounds right base Cardiac-regular rhythm, S1-S2, very short soft systolic murmur, tachycardic Abd-soft, nontender, bowel sounds present Ext-without edema Skin-without wounds, rashes, jaundice; PAC left upper chest Neuro-cranial nerves 3-12 intact, motor tone/power within normal limits, sensation intact to light touch 4 extremities Psych-fatigued, calm DATA: Repeat WBC this morning 8.3, platelet count 53; AST 45, ALT 85, alkaline phosphatase 152-LFTs chronically elevated; creatinine 1.1, GFR 54; UA +3 occult blood, +2 protein, 0-1 WBC; respiratory viral panel negative Chest x-ray reviewed by myself demonstrates diffuse bilateral L>R infiltrates with probable increased infiltrate on the left relative to the past film 10/01. Radiology also notes small nodular area in the right upper lobe which may represent nodular infiltrate but will require follow-up film or CT to confirm resolution. A/P: Acute febrile illness Sepsis, probable pulmonary source versus gastroenteritis Bronchitis versus pneumonia Diarrhea Nausea/vomiting Dehydration Interstitial lung disease Myelofibrosis with thrombocytopenia Hypogammaglobulinemia Diabetes mellitus, type II-A1C 6.5 on 10/27/17 Abnormal liver enzymes, chronic Continue IV fluids, fluid bolus being given for persistent tachycardia. Continue Levaquin, sputum culture being obtained. GI panel being obtained due to ongoing diarrhea. Supportive care. RT has screened for sleep apnea risk and requested overnight oximetry which will be obtained tonight. Resume home diabetes regimen as oral intake improves; give Lantus 15 units today for basal control and continue corrective scale insulin. Hold Jakafi during acute infection. Hospital Course Summary Disclaimer: The visit summary below is not to be considered part of the above Progress Note. Hospital Course: 12/22/17 Patient admitted with fever, respiratory symptoms, and nausea vomiting diarrhea. Multiple chronic medical conditions including myelofibrosis, hypogammaglobulinemia, and interstitial lung disease requiring home oxygen. Continue IV fluids, fluid bolus being given for persistent tachycardia. Continue Levaquin, sputum culture being obtained. GI panel being obtained due to ongoing diarrhea. Supportive care. RT has screened for sleep apnea risk and requested overnight oximetry which will be obtained tonight. Resume home diabetes regimen as oral intake improves; give Lantus 15 units today for basal control and continue corrective scale insulin. Hold Jakafi during acute infection.
[2017-12-22] MEDS: NS 1,000 ML IV SCH ×3 (02:22→20:51)
[2017-12-22] MEDS ORDERED: ALBUTEROL/IPRATROPIUM 2.5mg-0.5mg/3ml NEB AEROSOL PRN (03:10)
[2017-12-22] MEDS: ACETAMINOPHEN 325 MG TABLET PO PRN ×3 (05:52→19:28)
[2017-12-22] MEDS: INSULIN ASPART 100unit/ml INJECTION SQ PRN ×3 (06:02→15:21)
--- NOTE | 2017-12-22 07:56 | XRay Report ---
E EXAM: XR chest 2V HISTORY: increased hypoxemia, fever COMPARISON: Prior examination dated 09/17/2017 TECHNIQUE: AP and lateral views of the chest were obtained. FINDINGS: There is stable appearance of the left-sided indwelling central venous catheter. The lung joyner are hypoventilated. The heart appears upper limits of normal size which may be artifactual due to the hypoventilated state. The trachea is midline. The pulmonary vascularity is normal. There has been interval development of increased interstitial markings and hazy opacities at the lung bases left greater than right likely representing acute infiltrate/atelectasis. There is also been interval development of a 6 mm nodular focus in the right upper lobe that is indeterminate. The costophrenic angles are clear. The bony thorax is stable. IMPRESSION: 1. The lung joyner are hypoventilated and there are bibasilar increased interstitial markings and hazy opacities at the lung bases left greater than right centering for acute infiltrate/atelectasis. 2. Interval development of a 6 mm nodular focus in the right upper lobe that is indeterminate. This may represent acute focal infiltrate. Post therapeutic chest x-ray follow-up is recommended to confirm post therapeutic resolution. 3. The cardiac silhouette appears upper limits of normal size which may be artifactual owing to the hypoventilated state. .
[2017-12-22] MEDS: ALBUTEROL/IPRATROPIUM 2.5mg-0.5mg/3ml NEB AEROSOL SCH ×3 (08:41→19:19)
[2017-12-22] MEDS: POLYETHYL GLYCOL 3350 17gm PACKET PO SCH (10:29)
[2017-12-22] MEDS ORDERED: OXYCODONE/APAP 7.5 MG/325 MG TABLET PO PRN (11:03)
[2017-12-22] MEDS ORDERED: INSULIN GLARGINE 100unit/ml INJECTION SQ ONE (11:09)
[2017-12-22] MEDS ORDERED: NS 1,000 ML IV SCH (11:30)
[2017-12-22] MEDS ORDERED: INSULIN GLARGINE 100unit/ml INJECTION SQ SCH (14:00)
[2017-12-22] MEDS ORDERED: LIRAGLUTIDE INJECTABLE PEN SQ SCH (14:00)
[2017-12-22] MEDS ORDERED: LEVOTHYROXINE SODIUM 300 MCG PO SCH (21:00)
[2017-12-22] MEDS ORDERED: LEVOTHYROXINE 200 MCG TABLET PO SCH (21:00)
[2017-12-22] MEDS ORDERED: OMEPRAZOLE 20 MG CAPSULE PO SCH (21:00)
[2017-12-22] MEDS ORDERED: LEVOFLOXACIN PB 750 MG/150 ML BAG IV SCH (23:00)
[2017-12-23] MEDS: ACETAMINOPHEN 325 MG TABLET PO PRN (00:57)
[2017-12-23] MEDS ORDERED: LEVOFLOXACIN 750 MG TABLET PO SCH (06:30)
[2017-12-23] MEDS: INSULIN ASPART 100unit/ml INJECTION SQ PRN ×3 (06:34→15:07)
[2017-12-23] MEDS: ALBUTEROL/IPRATROPIUM 2.5mg-0.5mg/3ml NEB AEROSOL SCH ×2 (06:38→13:02)
[2017-12-23] MEDS: NS 1,000 ML IV SCH (07:13)
[2017-12-23] MEDS: ACETAMINOPHEN 500 MG TABLET PO PRN ×2 (07:50→15:06)
[2017-12-23] MEDS ORDERED: INSULIN GLARGINE 100unit/ml INJECTION SQ SCH (09:00)
[2017-12-23] MEDS ORDERED: LIRAGLUTIDE INJECTABLE PEN SQ SCH (09:00)
[2017-12-23] MEDS: POLYETHYL GLYCOL 3350 17gm PACKET PO SCH (10:03)
[2017-12-23 12:32] VITALS: O2SAT 99
[2017-12-23] MEDS ORDERED: ERGOCALCIFEROL 50,000 UNIT CAPSULE PO SCH (15:00)
[2017-12-23 15:11] VITALS: BP 118/83; PULSE 99; RESP 28; TEMP 97.1
[2017-12-23] MEDS: SALINE FLUSH 10ml SYRINGE IVF PRN (17:21)
--- NOTE | 2017-12-23 22:28 | Discharge Summary ---
Discharge Information Date of admission: 12/22/17 00:54 Anticipated date of discharge: 12/23/17 Attending Physician: Antonia Marion MD Primary care physician: Kenny Baker, DO - Discharge Diagnosis (1) Salmonella gastroenteritis Status: Acute (2) Bronchitis Status: Acute Salmonella gastroenteritis Acute febrile illness Sepsis, due to gastroenteritis Bronchitis Nodular infiltrate right upper [id number] imaging recommended Diarrhea Nausea/vomiting Dehydration Interstitial lung disease Myelofibrosis with thrombocytopenia Hypogammaglobulinemia Diabetes mellitus, type II-A1C 6.5 on 10/27/17 Abnormal liver enzymes, chronic - Laboratory Labs: WBC on admission 9.2, differential unremarkable; AST 54, ALT 100, output phosphatase 174 on admission. 12/23/17 05:45 12/23/17 05:45 Respiratory viral panel negative on admission GI panel positive for Salmonella-subtype pending - Microbiology Microbiology 12/23/17 06:29 Sputum, Expectorated Gram Stain -moderate epithelial cells, moderate neutrophils; mixed ekta 12/23/17 06:29 Sputum, Expectorated Sputum Culture - Preliminary Culture Initiated - Results Pending - Radiology Radiology: Chest x-ray on admission 12/21/17: There is stable appearance of the left-sided indwelling central venous catheter. The lung joyner are hypoventilated. The heart appears upper limits of normal size which may be artifactual due to the hypoventilated state. The trachea is midline. The pulmonary vascularity is normal. There has been interval development of increased interstitial markings and hazy opacities at the lung bases left greater than right likely representing acute infiltrate/atelectasis. There is also been interval development of a 6 mm nodular focus in the right upper lobe that is indeterminate. The costophrenic angles are clear. The bony thorax is stable. IMPRESSION: 1. The lung joyner are hypoventilated and there are bibasilar increased interstitial markings and hazy opacities at the lung bases left greater than right centering for acute infiltrate/atelectasis. 2. Interval development of a 6 mm nodular focus in the right upper lobe that is indeterminate. This may represent acute focal infiltrate. Post therapeutic chest x-ray follow-up is recommended to confirm post therapeutic resolution. 3. The cardiac silhouette appears upper limits of normal size which may be artifactual owing to the hypoventilated state. History of Present Illness HPI: Rica presented overnight after 1 day history of flu-like symptoms characterized by headache, myalgias, fever up to 104 at home, chills with sweats, cough productive of green sputum, nausea with bilious emesis, and diarrhea. She felt fine on Friday overnight Friday into early Friday morning developed multiple symptoms as above. Patient reports she was last treated with antibiotics about 2 weeks earlier when she was on doxycycline for an upper respiratory infection. She received IVIG one week ago today per usual 2 week schedule. She additionally describes some ear fullness and nasal congestion. In the emergency room initial temperature was 100.4, blood pressure was borderline, and she was tachycardic but did not have leukocytosis or lactic acidosis. She was started on Levaquin and chest x-ray revealed bilateral infiltrates which may have been in excess of her chronic interstitial lung disease. Objective Vital signs: Temperature 97.1 F 12/23/17 15:09 Pulse Rate 99 12/23/17 15:09 Respiratory Rate 28 H 12/23/17 15:09 Blood Pressure 118/83 12/23/17 15:09 Pulse Oximetry 99 12/23/17 15:09 NAD, alert Respirations nonlabored, no wheezing present Abdomen soft, obese, nontender Height/Weight/BMI: Height 1.55 m Weight 104.5 kg Body Mass Index 43.9 Hospital Course This is a general summary of the patient's hospital course. For more details refer to the complete medical record. Hospital course: 12/22/17 Patient admitted with fever, respiratory symptoms, and nausea vomiting diarrhea. Multiple chronic medical conditions including myelofibrosis, hypogammaglobulinemia, and interstitial lung disease requiring home oxygen. Continue IV fluids, fluid bolus being given for persistent tachycardia. Continue Levaquin, sputum culture being obtained. GI panel being obtained due to ongoing diarrhea. Supportive care. RT has screened for sleep apnea risk and requested overnight oximetry which will be obtained tonight. Resume home diabetes regimen as oral intake improves; give Lantus 15 units today for basal control and continue corrective scale insulin. Hold Jakafi during acute infection. 12/23/17 GI panel positive for salmonella-Levaquin will be dosed this morning but after discussion with patient have elected to convert to Cipro for continued outpatient treatment due to cost. Minor epistaxis this morning, readily controlled. Minor cough with minimal sputum production this morning-denies dyspnea. Respiratory symptoms not out of the ordinary. Diarrhea has improved progressively with only one stool reported this morning although it remained loose. Stable for discharge-continue Cipro for 5 days to complete 7 days therapy for salmonella. Resume usual home medications for multiple chronic medical conditions. Patient to follow-up with Dr. Baker in 1-2 weeks. Follow-up chest x-ray will be needed to reevaluate right upper lobe; if nodular area persists CT imaging recommended. Time spent with patient: discharge greater than 30 minutes Resuscitation Status: Full Code Discharge Plan - Discharge Disposition Discharge Date: 12/23/17 Disposition: 01 Discharged Home, Self-Care *Condition: Stable Reason For Visit (Visit label in EMR): fever, tachycardia - Discharge Medications *Discharge Medications: New Ciprofloxacin [Cipro 500 mg] 500 mg PO BID #10 tab Continue Ergocalciferol (Vitamin D2) [Vitamin D2] 50,000 unit PO TUSA@1500 Albuterol Sulfate [Proair Hfa] 2 puff INH Q4H PRN PRN Reason: Prn Orders Methylprednisolone Sod Succ/Pf [Solu-Medrol 1,000 mg Vial] 1,000 mg IV Q2WKS diphenhydrAMINE HCl [Benadryl] 25 mg PO Q2WKS Acetaminophen [Acetaminophen Extra Strength] 1,000 mg PO Q6H PRN PRN Reason: Pain Oxycodone/Apap 7.5/325 [Percocet 7.5/325] 1 tab PO Q6H PRN #30 tab PRN Reason: Pain Sodium Chloride Nasal Gel [[place] Nasal Gel] 1 applicatio TOP QID PRN tube PRN Reason: nasal dryness IMMUNE GLOBULIN (IVIG) Low IGA [GAMMAGARD Low IGA] 1 vial IV Q2WKS #0 Omeprazole 40 mg PO HS #0 Levothyroxine Sodium 300 mcg PO HS Ruxolitinib Phosphate [Jakafi] 5 mg PO BID [place] (insulin glargine) 100 unit-lixisenatide 33 mcg/mL(3 mL)PEN 0.3 ml SQ QAM #15 ml levothyroxine 100 mcg tablet 100 mcg PO HS #90 tab Discontinued Novolog (insulin aspart) 100 unit/mL 20 unit SQ WM #2 vial - Discharge Packet/Instructions *Diet: Diabetic *Activity: As tolerates *Pain Management/Treatment: Tylenol as needed-see medication list *Wound Care: Not applicable Additional Instructions: Take ciprofloxacin 500 mg twice daily for the next 5 days to complete treatment for salmonella infection; start ciprofloxacin 7/11 AM. *Expected Signs/Symptoms: Minor abdominal cramping and diarrhea which should resolve in the next couple of days *Notify Physician if: Fevers return or diarrhea worsens *During Business Hours Contact: Dr. Baker *After Business Hours Contact: Call [facility] at [phone] and ask that the on-call physician be paged *Pending Lab/Results: Follow up w/Provider - Referrals/Follow Up *Referrals/Follow Up: Kenny Baker DO [Primary Care Provider] - (1-2 weeks) - Patient Handouts Patient Handouts: Salmonella Infection (GEN) - Dismissal Complete Discharge Instructions are:: Complete Physician Narrative - Narrative Attestation Narrative: Date: 12/23/17 Time: 2223
== END 2017-12-23 17:40 | disposition home or self-care (01) | DRG 872 ==
LOC: ED 21:40 → EDHOLD 12-22 00:54 → MED 12-22 01:43
PROVIDERS: ADMIT Emergency Medicine; ATTEND Internal Medicine